=== PATIENT | male | born 1960 | race Caucasian/White ===

== ENCOUNTER 2020-04-10 08:46 | Emergency (ER) | payer BC, SELFPAY ==
--- NOTE | ~2020-04-10 | CT_ITS ---
EXAMINATION: CTA chest PE protocol DATE: 04/10/2020 10:36 INDICATION: Cough. Elevated d-dimer. TECHNIQUE: Computed tomography angiography (CTA) of the chest was performed with 100 mL Omnipaque-350 intravenous contrast timed to evaluate the pulmonary arteries. Coronal maximum intensity projection 3D-reconstructions were created by the technologist. Automated exposure control and iterative reconst ruction technique were employed. Exam dose: 839.24 mGy-cm total exam DLP. COMPARISON: April 10, 2020 2 view chest FINDINGS: There is moderate opacification the pulmonary arteries and no evidence of pulmonary embolis m. No hilar or mediastinal mass lesion or lymphadenopathy. No thoracic aortic aneurysm or dissection. Normal heart size. No pericardial or pleural effusion. Prominent splenic size is suggested at the spleen is only partially included in this examination. No pulmonary infiltrate or consolidation or pulmonary mass lesion. Diffuse idiopathic skeletal hyperostosis of the thoracic spine. There is very prominent unusual posterior spurring at T8-9, projecting up to 7 mm into the thoracic s willie canal. IMPRESSION: No evidence of pulmonary embolism Diffuse idiopathic skeletal hyperostosis of the thoracic spine. Particularly prominent posterior spurring compromising the thoracic spinal canal at T8-9 Suggestion of splenomegaly Reviewed, dictated and finalized at [facility]. Reviewed, dictated and finalized at [facility]. T METAL WORK FURNACE INSTALLER IMPRESSION: No evidence of pulmonary embolism Diffuse idiopathic skeletal hyperostosis of the thoracic spine. Particularly prominent posterior spurring compromising the thoracic spinal emmanuel l at T8-9 Suggestion of splenomegaly
--- NOTE | ~2020-04-10 | XR_ITS ---
XR chest 2V DATE: 04/10/2020 09:42 INDICATION: Cough TECHNIQUE: PA and lateral views COMPARISON: None FINDINGS: Normal heart size. No hilar or mediastinal enlargement. No pulmonary infiltrate or consolid ation, pleural effusion or pulmonary vascular congestion or pneumothorax. Degenerative spurring of the thoracic spine. IMPRESSION: No active cardiopulmonary disease Reviewed, dictated and finalized at [facility]. CH ENGINE OPTIMIZATION MANAGER
[2020-04-10 09:08] VITALS: BP 114/64; PULSE 110; RESP 16; TEMP 36.6; O2SAT 99
--- NOTE | 2020-04-10 09:11 | ECG_ITS ---
Measurements Intervals [place] Rate: P: AK: QRS: QRSD: T: QT: QTc: Interpretive Statements SINUS TACHYCARDIA BORDERLINE T WAVE ABNORMALITY- INFERIOR LEADS BASELINE ARTIFACT- I, II, III, AVR, AVL, AVF BORDERLINE ECG Electronically Signed On 04-11-2020 8:50:56 TRIAL MGR by Odell Newton D.O.
[2020-04-10] MEDS: SODIUM CHLORIDE 0.9% IV 1,000 ML 999 ML IV CONT (09:32)
[2020-04-10 09:42] LABS: Hematocrit 23.1 % (40.0-54.0); Hemoglobin 7.1 g/dL (14.0-18.0); Mean Corpuscular HGB Conc 30.7 g/dL (32.0-36.0); Mean Corpuscular Hemoglobin 26.8 pg (27.0-31.0); Mean Corpuscular Volume 87.2 fL (78.0-102.0); Red Blood Count 2.65 M/mm3 (4.70-6.10); White Blood Count 1.8 K/mm3 (4.8-10.8)
[2020-04-10 09:45] VITALS: BP 98/55; PULSE 97; RESP 18; O2SAT 98
[2020-04-10 09:48] LABS: Add Urine Microscopic? YES; Bilirubin Urine 1+ (Negative); Blood Urine Negative (Negative); Glucose Urine UA Negative (Negative); Ketones Urine Negative (Negative); Leukocyte Esterase Ur Negative LEU/UL (Negative); Nitrate Urine Negative (Negative); Protein Urine 1+ (Negative); Specific Grav Ur >= 1.030 (1.010-1.020)
[2020-04-10 09:52] LABS: INR 1.3; Partial Thromboplastin Time 28.4 SEC (23.90-30.70); Prothrombin Time 13.3 Seconds (9.50-12.10)
[2020-04-10 09:54] LABS: Amorphous Sediment Urine Moderate; Bacteria Urine 1+ /hpf; RBC Urine None seen /hpf (0-2); Squamous Epithelial Cell Urine Few /hpf (Few); WBC Urine None seen /hpf (0-3)
[2020-04-10 09:55] LABS: Appearance Urine Sl Cloudy (Clear); Color Urine Amber (Yellow)
[2020-04-10 09:56] LABS: Lactic Acid Reflex 1.2 mmol/L (0.4-2.0)
[2020-04-10 09:57] LABS: D Dimer 0.93 mg/L (0.19-0.50)
[2020-04-10 09:59] LABS: Platelet Count Result 1 K/mm3 (150-420)
[2020-04-10 10:01] LABS: Influenza Control Valid (Valid); SARS-CoV-2 Ag Negative (Negative)
[2020-04-10 10:05] LABS: Alanine Aminotransferase 27 U/L (16-63); Albumin Level 3.1 g/dL (3.4-5.0); Alkaline Phosphatase 52 U/L (46-116); Anion Gap 8 mmol/L (8-16); Aspartate Amino Transferase 27 U/L (15-37); Bilirubin,Total 1.5 mg/dL (0.00-1.00); Blood Urea Nitrogen 22 mg/dL (7-18); Calcium 7.7 mg/dL (8.5-10.1); Carbon Dioxide 27 mmol/L (21-32); Chloride 104 mmol/L (98-108); Estimated CRCL calculation 72 ml/min; Estimated Glomerular Filt Rate > 60; Glucose 129 mg/dL (70-99); Magnesium 2.3 mg/dL (1.8-2.4); Osmolality Calculated 293 mOsm/kg (285-295); Potassium 3.1 mmol/L (3.5-5.1); Sodium 139 mmol/L (136-145); Total Protein 5.9 g/dL (6.4-8.2); Troponin I < 4.0 ng/L (0.00-60.4)
[2020-04-10 10:11] LABS: Band Neutrophils Percent 0 % (0-6); Neutrophils Absolute Manual 0.99 K/mm3 (1.3-6.7); Neutrophils Percent Manual 55 % (46-73); Total Cells Counted 100
[2020-04-10 10:12] LABS: Basophils Percent Manual 0 % (0-1); Eosinophils Percent Manual 0 % (1-6); Lymphocytes Absolute Manual 0.57 K/mm3 (1.1-4.5); Lymphocytes Percent Manual 32 % (18-44); Monocytes Absolute Manual 0.21 K/mm3 (0.1-0.90); Monocytes Percent Manual 12 % (3-9); Platelet Estimate Decreased (Adequate)
--- NOTE | 2020-04-10 11:27 | PC.NURSE ---
[facility] CONTACTED FOR PT TRANSFER. PT REQUESTING [facility].
[2020-04-10 11:37] VITALS: BP 98/51; PULSE 96; RESP 18; O2SAT 99
--- NOTE | 2020-04-10 11:39 | ED.SOB ---
HPI - SOB/Dyspnea General Chief Complaint: Shortness of Breath/Dyspnea Stated Complaint: dizziness, weakness, difficulty breathing Source: patient Mode of arrival: ambulatory History of Present Illness HPI Narrative: 60-year-old gentleman presents to the emergency department with increasing weakness with some mild shortness of breath with some mild nonproductive cough and over the last 3 days has been feeling more weak and had become dizzy when he woke up and sat up this morning. The patient denies any chest pain there is no audible wheezing no fever chills no abdominal pain no flank pain, there is no dysuria new hematuria. The patient does have a history of hypertension is currently on losartan, Coreg and felodipine. There is no current hematuria, no nose bleeds but there is no of note petechiae located on his lower extremity and lower abdominal area. There is no diarrhea constipation and no hematochezia. Patient states that he saw his primary care physician approximately 2 to 3 months ago and was told he had a normal routine exam, had blood work done at [facility] but do not have access to his blood work that was performed at that time. The patient denies any alcohol and is a nonsmoker, currently no abdominal pain no epigastric pain no reproducible chest pain. MD elicited complaint: shortness of breath Onset (ago): day(s) Timing: constant Severity: moderate Exacerbating factors: nothing Related Data Home Medications Medication Instructions Recorded Confirmed brimonidine [Mirvaso] 1 applic TOPICAL DAILY 04/10/20 04/10/20 carvedilol 3.125 mg PO BID 04/10/20 04/10/20 desonide 1 applic TOPICAL PRN 04/10/20 04/10/20 doxycycline hyclate 100 mg PO DAILY 04/10/20 04/10/20 felodipine 5 mg PO DAILY 04/10/20 04/10/20 losartan-hydrochlorothiazide 1 tablet PO DAILY 04/10/20 04/10/20 Allergies Allergy/AdvReac Type Severity Reaction Status Date / Time No Known Allergies Allergy Verified 04/10/20 09:31 Review of Systems Review of Systems: All systems reviewed & are unremarkable except as noted in HPI and below PMFSH Past Medical History Medical History (Updated 04/10/20 @ 11:42 by Forest Heath MD) HTN (hypertension) Exam Const: General: no acute distress and alert Orientation/consciousness: patient oriented x3 HENMT: Head: normal to inspection Eyes: Conjunctivae: conjunctivae normal Pupils: Equal, round and reactive pupils present Direct Ophthalmoscopy: no photophobia Neck: Neck: normal visual inspection, no lymphadenopathy and no meningeal signs Chest: Chest palpation & inspection: normal inspection of the chest Resp: Effort & Inspection: normal respiratory effort Auscultation: clear to auscultation bilaterally Cardio: Rate: regular rate and tachycardic Rhythm: regular rhythm GI: GI Palp: Yes Soft to palpation Percussion: Yes normal to percussion : Testes: Testes normal Urinary Catheter: Urinary Catheter: patent and draining Skin: Other: petechiae noted on his lower extremities and lower abdomen. Neuro: General: patient oriented x3, moves all extremities, no meningeal signs and no focal motor deficits Cranial nerves: Yes Nystagmus not present Extrem: General: normal to inspection and no pedal edema Psych: Mental Status: mental status grossly normal Affect: normal affect Thought content: Yes Normal thought content present Course Course Emergency Course: Reassessment patient, patient appears comfortable no acute distress reviewed findings of his blood work and an scans and was told that he was profoundly thrombocytopenic as well as having pancytopenic with a low white count and low hemoglobin and hematocrit. Patient denies any overt bleeding, denies having any current or recent nose bleeds. Patient stated that he wished to be transfer to [facility]. Reviewed the CTA scan and there was no evidence of pulmonary embolism, although not complete showed that there is evidence of splenomeg
--- NOTE | 2020-04-10 12:28 | PC.NURSE ---
with no accepting oncologist at [place], pt unable to be accepted at [facility]. [facility] for [facility].
--- NOTE | 2020-04-10 12:35 | PC.NURSE ---
DR. CONSTANTINO FROM [facility] CALLED AND SPOKE WITH DR WALTON ABOUT PT. PT ACCEPTED TO [facility].
--- NOTE | 2020-04-10 13:05 | PC.NURSE ---
[facility] CONTACTED FOR TRANSFER.
[2020-04-10 13:20] VITALS: BP 101/78; PULSE 95; RESP 18; O2SAT 98
== END 2020-04-10 13:37 | disposition short-term general hospital (02) ==
PROVIDERS: Emergency Provider Emergency Medicine; PCP Internal Medicine
DX: D61.818 Other pancytopenia (principal); Z20.822 Contact with and (suspected) exposure to COVID-19; R06.02 Shortness of breath
CPT/HCPCS: 36415; 71046; 71275; 80053; 81001; 83605; 83735; 83880; 84484; 85025; 85055; 85380; 85610; 85730; 86900; 86901; 87040; 87426; 87804; 93005; 96360; 99285; C9803; J7030; J7050; Q9967

== ENCOUNTER 2020-04-10 15:40 | Inpatient (IN) | payer BC, SELFPAY ==
[2020-04-10] VITALS (16 sets, daily range): BP systolic 77–117; BP diastolic 33–64; PULSE 79–102; RESP 13–22; TEMP 36–37; O2SAT 97–100
--- NOTE | ~2020-04-10 | BM_ITS ---
EXAMINATION: CCL bone marrow asp w bx diag DATE: 04/11/2020 13:18 INDICATION: Pancytopenia. TECHNIQUE: A time-out was performed to verify the patient's name, date of , and procedure to b e performed. The procedure including the risks, benefits, and alternatives was discussed with the pat ient. Risks discussed included bleeding and infection. The patient understood the risks and agreed to proceed. The skin overlying the right ilium was prepped and draped in usual sterile fashion. Anest hetic was administered with 1% lidocaine subcutaneously. 50 mcg fentanyl IV was given for pain contro l. An 11 gauge needle was inserted into the ilium with fluoroscopic guidance. Bone marrow was aspira hebert. An 8 gauge needle was then inserted into the ilium with fluoroscopic guidance. A core bone marro w biopsy was obtained. There were no immediate complications. Fluoroscopy exposure time was 0.0 minut es. The total number of images was 9. FINDINGS: Real-time fluoroscopy demonstrates a marker overlying the right posterior superior iliac sp ine. IMPRESSION: 1. Fluoro-guided bone marrow aspiration. 2. Fluoro-guided bone marrow core biopsy. Reviewed, dictated and finalized at [facility]. OIDERER
--- NOTE | 2020-04-10 14:05 | ADMGEN ---
This patient, Willy Gamboa, was admitted to Medical Room 251-. Patient/family oriented to hospital policies and general routines including ID bracelet, bed and alarms, visiting hours, pain management, procedures, bathroom and other care routines, personal items, smoking policy, room service/diet, and visiting hours. Information on how to activate the Rapid Response Team has been discussed. Patient/Family are encouraged to report perceived risks to care and to ask questions if they do not understand what they are told or what they should do.
--- NOTE | 2020-04-10 15:46 | PM.IMHP ---
H&P: HPI History of Present Illness Date/Time: 04/10/20 15:46 Chief Complaint: Weakness and dizziness Narrative: Willy Gamboa is a 60 year old male the patient was a direct admit [facility] from [facility]. Heath. I did speak to Dr. Heath at [facility] regarding the patient and I also spoke with Dr. schaefer. Dr. schaefer did also spoke with Dr. Heath at [facility]. Dr. schaefer agreed to consult on the patient. The patient has been feeling weak and fatigued for approximately 3 days. He has been having some darker urine. He just noticed some petechiae today on his chest and lower extremity. Otherwise the patient has not noticed any bleeding. No blood in his stool and he has not been coughing up any blood. He states that he has been coughing but it has been a thicker phlegm. He said that he did have some chills and some night sweats but no fever that he is aware of. He denies any chest pain or shortness of breath. The patient has been weak and dizzy. The patient stated that he had normal labs last month. He has had no history of any HIV or any cancer. He said that he had a normal physical about 2 or 3 months ago. He is a nonsmoker. He has no abdominal pain or nausea vomiting. Patient has a past medical history of hypertension. He has not taken any new medication or any blood thinners. He has not been taking any NSAIDs. The patient appears to be very comfortable. The patient did have a CT a performed with no evidence of any pulmonary embolism. The patient also had evidence of splenomegaly. He did have an elevated D-dimer. He is not having any discomfort at this time. White count was noted to be 1.8. The patient had been sitting in the chair initially when the lab karen some blood on the patient the patient passed out became unresponsive. The patient had approximately an 2nd pause on his heart monitor. The patient was diaphoretic. His blood sugar was in the 120s. A stat EKG was ordered as well as troponins. I did call the district or district office director who suggested that we place the patient in ICU under IMU status. The patient had a blood pressure of approximately 90/50 at this time. The patient is being admitted to inpatient services on 04/10/2020. Review of Systems Review of Systems: All systems reviewed & are unremarkable except as noted in HPI and below Constitutional: Constitutional: Reports as per HPI and Reports no additional constitutional complaints Eyes: Eyes: Reports as per HPI and Reports no additional eye complaints ENT: Reports system reviewed and no additional complaints, except as documented and Reports Normal hearing present Cardiovascular: Cardiovascular: Reports no additional cardiovascular complaints Respiratory: Respiratory: Reports no additional respiratory complaints and Reports no additional respiratory complaints Gastrointestinal: Gastrointestinal: Reports as per HPI and Reports no additional gastrointestinal complaints Musculoskeletal: Musculoskeletal: Reports no additional musculoskeletal complaints Integumentary/Breasts: Skin/Breast: Reports system reviewed and no additional complaints, except as docu and Reports as per HPI Neurologic: Reports system reviewed and no additional complaints, except as documented, Reports as per HPI and Reports Normal hearing present Psychiatric: Psychiatric: Reports no additional psychiatric complaints and Reports as per HPI Endocrine: Endocrine: Reports no additional endocrine complaints Hematologic/Lymphatic: Hematologic/Lymphatic: Reports no additional hematologic/lymphatic complaints Allergic/Immunologic: Allergic/Immunologic: Reports no additional allergic/immunologic complaints [facility] Past Medical History Medical History (Updated 04/10/20 @ 16:39 by Akla Mendoza NP) HTN (hypertension) Rosacea Surgical History Surgical History (Updated 04/10/20 @ 16:40 by Alka Mendoza NP) No pertinent past surgical history Family History Family Histo
[2020-04-10 16:22] LABS: Basophils Percent Auto 0.5 % (0.2-1.2); Hematocrit 25.5 % (42.0-52.0); Hemoglobin 8.1 g/dL (14.0-18.0); Immature Granulocyte Absolute 0.09 K/mm3 (0.00-0.031); Immature Granulocyte Percent A 4.2 % (0-0.5); Lymphocytes Absolute Auto 0.52 K/mm3 (0.9-3.2); Lymphocytes Percent Auto 24.5 % (18.3-44.2); Mean Corpuscular HGB Conc 31.8 g/dl (32-36); Mean Corpuscular Hemoglobin 27.5 pg (26-34); Mean Corpuscular Volume 86.4 fl (80-100); Monocytes Absolute Auto 0.4 K/mm3 (0.1-0.6); Monocytes Percent Auto 19.3 % (2.6-8.5); Neutrophils Absolute Auto 1.1 K/mm3 (1.3-6.7); Neutrophils Percent Auto 51.5 % (45.5-73.1); Red Blood Count 2.95 M/mm3 (4.6-6.20); Red Cell Distribution Width 18.3 % (11.5-14.5); Reticulocyte Hemoglobin Conten 27.9 pg (28.2-35.7); Reticulocyte Percent 3.34 % (0.7-4.3); White Blood Count 2.1 K/mm3 (4.5-10.0)
[2020-04-10 16:25] LABS: Glucose Point of Care 122 (65-105)
[2020-04-10 16:35] LABS: Bilirubin,Total 1.7 mg/dL (0.2-1.3); Lactate Dehydrogenase 734 U/L (313-618); Magnesium 2.2 mg/dL (1.6-2.3)
[2020-04-10 16:36] LABS: Lactic Acid Reflex 0.9 mmol/L (0.7-2.1)
[2020-04-10 16:49] LABS: Transferrin 183 mg/dL (206-381)
[2020-04-10 16:51] LABS: Troponin I < 0.012 ng/mL (0.000-0.034)
[2020-04-10 16:52] LABS: Platelet Count Result < 3 k/mm3 (150-375)
[2020-04-10 16:55] LABS: Platelet Estimate Decreased (Adequate); Polychromasia 1+ (NORMAL)
[2020-04-10 16:56] LABS: Anisocytosis 1+ (NORMAL); Ovalocytes 1+ (NORMAL); Tear Drop Cells 1+ (NORMAL)
[2020-04-10 16:57] LABS: Poikilocytosis 1+ (NORMAL)
[2020-04-10 17:04] LABS: Iron 103 ug/dL (49-181)
--- NOTE | 2020-04-10 17:05 | PC.NURSE ---
To ICU/05 via bed. Family notified of transfer. Report called to Farshad PAZ.
--- NOTE | 2020-04-10 17:13 | PC.NURSE ---
1700 Spoke with , Carey, updated on patient condition. Pt alert and oriented at this time. While patient was being admitted by nurse, pt became dizzy, lost consciousness, had a 8 second pause on telemetry & regained consciousness. Pt diaphoretic, pale, clammy. Pt transferred to the bed via wheelchair. Provider was at the bedside and determined he will need to go to ICU for closer monitoring and they will place pads on his chest in the event that he would require cardioversion. Visiting hours and policy was explained & contact information shared.
--- NOTE | 2020-04-10 17:13 | PC.NURSE ---
To ICU/05 via bed. Family notified of transfer.Report called to Farshad PAZ.
[2020-04-10 17:14] LABS: Percent Iron Saturation 38 % (20-50)
[2020-04-10 17:16] LABS: HIV 1/2 Ab P24 Ag Result Negative (Negative)
[2020-04-10 17:45] LABS: Folic Acid 10.3 ng/mL (2.76->20)
[2020-04-10] MEDS: SODIUM CHLORIDE 0.9% IV 250 ML 30 ML IV CONT (17:45)
[2020-04-10 19:35] LABS: INR 1.2; Prothrombin Time 15.6 Seconds (11.1-14.7)
[2020-04-10 19:48] LABS: Troponin I < 0.012 ng/mL (0.000-0.034)
[2020-04-10 23:12] LABS: Troponin I < 0.012 ng/mL (0.000-0.034)
[2020-04-11] VITALS (30 sets, daily range): BP systolic 100–141; BP diastolic 52–76; PULSE 69–101; RESP 12–24; TEMP 36.6–37.8; O2SAT 95–100
[2020-04-11 04:26] LABS: Hematocrit 23.1 % (42.0-52.0); Hemoglobin 7.6 g/dL (14.0-18.0); Immature Granulocyte Absolute 0.03 K/mm3 (0.00-0.031); Immature Granulocyte Percent A 1.9 % (0-0.5); Immature Platelet Fraction Pct 1.7 % (0.9-11.2); Lymphocytes Absolute Auto 0.44 K/mm3 (0.9-3.2); Lymphocytes Percent Auto 27.2 % (18.3-44.2); Mean Corpuscular HGB Conc 32.9 g/dl (32-36); Mean Corpuscular Hemoglobin 28.5 pg (26-34); Mean Corpuscular Volume 86.5 fl (80-100); Mean Platelet Volume 7.5 fl (7.4-10.4); Monocytes Absolute Auto 0.4 K/mm3 (0.1-0.6); Monocytes Percent Auto 24.1 % (2.6-8.5); Neutrophils Absolute Auto 0.8 K/mm3 (1.3-6.7); Neutrophils Percent Auto 46.8 % (45.5-73.1); Red Blood Count 2.67 M/mm3 (4.6-6.20); Red Cell Distribution Width 17.1 % (11.5-14.5)
[2020-04-11 04:38] LABS: Alanine Aminotransferase 22 U/L (4-50); Albumin Level 2.9 g/dL (3.5-5.1); Alkaline Phosphatase 44 U/L (38-126); Anion Gap 5 mmol/L (8-16); Aspartate Amino Transferase 20 U/L (17-59); Bilirubin,Total 1.5 mg/dL (0.2-1.3); Blood Urea Nitrogen 20 mg/dL (9-20); Calcium 7.7 mg/dL (8.4-10.2); Carbon Dioxide 29 mmol/L (22-30); Chloride 106 mmol/L (98-107); Estimated Glomerular Filt Rate > 60; Glucose 107 mg/dL (75-110); Potassium 3.1 mmol/L (3.4-5.0); Sodium 140 mmol/L (137-145)
[2020-04-11 04:51] LABS: Platelet Count Result < 3 k/mm3 (150-375); White Blood Count 1.6 K/mm3 (4.5-10.0)
[2020-04-11 04:52] LABS: Hypochromasia 2+ (NORMAL); Platelet Estimate Decreased (Adequate); Polychromasia 1+ (NORMAL)
--- NOTE | 2020-04-11 09:00 | PM.CNCAR ---
Assessment and Plan Additional Plan 60-year-old man with Fairly typical episode of vasovagal syncope during phlebotomy. This occurred yesterday. This was well documented on telemetry. It is fortuitous that he was on telemetry even though I am not sure the reason for that since he was transferred here for hematologic problem. In any event he has no other cardiac history or symptoms his cardiovascular physical exam and is resting 12 lead ECG are unremarkable. I am very confident this was a benign vaso vagal event related related to phlebotomy. I believe there are likely to be plans to perform a bone marrow examination later today. If that takes place I would recommend Prieb treating him with a mg of atropine prior to attempting bone marrow aspiration Forest Malik MD [facility] History of Present Illness History of Present Illness Consult date/time: 04/11/20 09:00 Reason For Visit: Pancytopenia Narrative: This is a very pleasant and somewhat unfortunate 60-year-old gentleman that I am seeing at the request of the hospitalist because of a bradycardic pause that he had yesterday afternoon here at the hospital on the floor. The patient was feeling unwell and thought he had a viral illness and so he went to the emergency room in [place] yesterday morning. His evaluation demonstrated him to be significantly pancytopenic and so he was transferred to [facility] for admission and further evaluation. Yesterday while he was on the floor he had phlebotomy being performed with he says quite a few tubes of blood being taken. As the supervisor steel division was proceeding he told her that he was starting to feel unwell. They let him rest for a while but with has phlebotomy continued he had a long asystolic pause which was documented on a telemetry. The telemetry strips have been personally reviewed he had a sinus pause and recovered spontaneously. He states he has never had a syncopal episode in the past and denies any other potentially cardiac symptoms such as exertional dyspnea chest pain orthopnea PND or palpitations. His resting 12 lead ECG is unremarkable. He has received several units of platelets because of very low platelet count but the count has not increased in response. Hematology consult of course has been requested but has yet to occur. He offers no other symptoms or complaints. His lab work shows he is pancytopenic with a platelet count of less than 3000 a hemoglobin in the sevens and a white count of 1.6. Review of Systems Constitutional: Constitutional: Reports lethargy Eyes: Eyes: Reports no additional eye complaints ENT: Reports system reviewed and no additional complaints, except as documented Cardiovascular: Cardiovascular: Reports no additional cardiovascular complaints Respiratory: Respiratory: Reports no additional respiratory complaints Gastrointestinal: Gastrointestinal: Reports no additional gastrointestinal complaints Musculoskeletal: Musculoskeletal: Reports no additional musculoskeletal complaints Integumentary/Breasts: Comments: Recent development of petechia Neurologic: Reports system reviewed and no additional complaints, except as documented Psychiatric: Psychiatric: Reports no additional psychiatric complaints Endocrine: Endocrine: Reports no additional endocrine complaints Hematologic/Lymphatic: Hematologic/Lymphatic: Reports no additional hematologic/lymphatic complaints PMFSH Past Medical History Medical History (Updated 04/11/20 @ 00:00 by Angel Mackenzie) HTN (hypertension) Rosacea Surgical History Surgical History (Updated 04/10/20 @ 16:40 by Alka Mendoza NP) No pertinent past surgical history Family History Family History Mother Lung cancer Father Lung cancer Social History Social History (Updated 04/10/20 @ 16:41 by Alka Mendoza NP) Social History: The patient is and lives with his . He states that s
[2020-04-11] MEDS: DOXYCYCLINE HYCLATE 100 MG TABLET PO (09:15)
[2020-04-11] MEDS: SODIUM CHLORIDE 0.9% IV 250 ML 30 ML IV CONT ×2 (09:15→18:34)
--- NOTE | 2020-04-11 13:20 | PM.IMPN ---
Progress Note: A&P Assessment and Plan (1) Pancytopenia: Code(s): D61.818 - Other pancytopenia Status: Acute Assessment and Plan: Unclear etiology S/p platelet transfusion with little response BM bx today Hem/Onc has been consulted Will continue to monitor (2) HTN (hypertension): Code(s): I10 - Essential (primary) hypertension Status: Acute Assessment and Plan: Continue home meds Continue to monitor (3) Vasovagal episode: Code(s): R55 - Syncope and collapse Status: Acute Assessment and Plan: No need for further intervention at this time as vasovagal in nature single episode Appreciate Cardiology note Subjective Date/time seen: 04/11/20 13:20 I feel fine Review of Systems Review of Systems: Narrative: Flu like symptoms. Constitutional: Comments: fevers, chills, rigors for 2 weeks or so. ENT: Comments: no ears ache ,no nasal congestion, no throat pain. Cardiovascular: Comments: no chest pain, no orthopnea, no pnd, no leg swelling, episode of syncope. Respiratory: Comments: no sob, dry cough, no sputum production, Gastrointestinal: Comments: no n/v/diarrhea. Musculoskeletal: Comments: no muscle aches or pains. Integumentary/Breasts: Comments: petechial rash in B/L LE extremities Neurologic: Comments: vasovagal episode while getting blood drawn Exam Narrative: Exam Narrative: Sitting in bed. Const: General: healthy appearing, comfortable, no acute distress, alert, awake and Physically active Nutritional Appearance: overweight Orientation/consciousness: patient oriented x3 HENMT: Head: normocephalic Ears: hearing grossly normal bilaterally General nose exam: Normal external nose present Face and sinus: normal facial exam Eyes: General: appearance normal, both eyes and all related structures Pupils: Equal, round and reactive pupils present EOM: EOMs intact bilaterally Neck: Neck: no lymphadenopathy, supple and no JVD Resp: Effort & Inspection: normal respiratory effort and able to speak in complete sentences Auscultation: clear to auscultation bilaterally Cardio: Jugular venous distension: no JVD Rate: regular rate Rhythm: regular rhythm GI: GI Palp: Yes Soft to palpation and Yes No hepatosplenomegaly present Skin: Rashes: rashes noted (petechial rash in b/l le ) Neuro: General: patient oriented x3 and CN's II-XI intact bilaterally Cranial nerves: Yes CN's II-XII intact bilaterally and Yes Equal, round and reactive pupils present Cognition (Neuro): normal cognition Motor exam (neuro): 5/5 motor strength present throughout Extrem: General: normal to inspection and no pedal edema Objective Data Vital Signs Vital Signs: Vital Signs - 24 hr 04/10/20 16:00 04/10/20 16:10 04/10/20 16:25 Temperature 98.2 F 97.2 F L Pulse Rate 102 H 98 91 Respiratory Rate 16 16 Blood Pressure 77/33 L 94/57 L Pulse Oximetry 100 100 04/10/20 17:30 04/10/20 17:40 04/10/20 17:48 Temperature 98.5 F 98.4 F Pulse Rate 88 88 94 Respiratory Rate 16 16 18 Blood Pressure 102/58 L 111/56 L Pulse Oximetry 98 98 100 04/10/20 18:00 04/10/20 18:49 04/10/20 18:52 Temperature 96.8 F L 96.8 F L Pulse Rate 94 89 89 Respiratory Rate 20 20 Blood Pressure 105/64 105/64 Pulse Oximetry 99 99 04/10/20 19:07 04/10/20 20:00 04/10/20 20:32 Temperature 98.1 F 98.5 F 98.6 F Pulse Rate 88 88 85 Respiratory Rate 13 16 22 H Blood Pressure 117/61 97/56 L 105/57 L Pulse Oximetry 99 97 98 04/10/20 20:50 04/10/20 22:31 04/10/20 22:50 Temperature 98.5 F 98.5 F 98.2 F Pulse Rate 86 80 83 Respiratory Rate 18 18 16 Blood Pressure 91/46 L 107/57 L 112/55 L Pulse Oximetry 97 98 97 04/10/20 23:02 04/11/20 00:43 04/11/20 00:58 Temperature 98.1 F 98.8 F 98.7 F Pulse Rate 79 78 70 Respiratory Rate 22 H 12 21 H Blood Pressure 99/58 L 108/70 107/60 Pulse Oximetry 98 97 96 04/11/20 01:58 04/11/20 02:45 04/11/20 04:00 Temperature 98.7 F 99 F
--- NOTE | 2020-04-11 13:33 | SUR.PHASEII ---
1330 - Pt positioned flat on back on stretcher after bone biopsy to right posterior hip. Drsg dry and intact. Pt resting at intervals with c/o pressure/ pain to right hip area. VSS. Specimens sent to lab. Transferred back to ICU via stretcher. Report called to OBJECTIVE C DEVELOPERBRANDI Yen.
--- NOTE | 2020-04-11 14:02 | PC.NURSE ---
Pt off the unit,to record label intern for bonebiopsy at 1150, returned to unit at 1330, dressing to right butt cheek clean dry and intact
[2020-04-11 16:08] LABS: Hematocrit 23.5 % (42.0-52.0); Hemoglobin 7.7 g/dL (14.0-18.0); Immature Platelet Fraction Pct 1.9 % (0.9-11.2); Mean Corpuscular HGB Conc 32.8 g/dl (32-36); Mean Corpuscular Hemoglobin 28.3 pg (26-34); Mean Corpuscular Volume 86.4 fl (80-100); Mean Platelet Volume 8.1 fl (7.4-10.4); Red Blood Count 2.72 M/mm3 (4.6-6.20); Red Cell Distribution Width 17.1 % (11.5-14.5)
[2020-04-11 16:17] LABS: Platelet Count Result < 3 k/mm3 (150-375); White Blood Count 1.5 K/mm3 (4.5-10.0)
--- NOTE | 2020-04-11 18:02 | PDONCCN ---
HPI - Date of Consult Date/Time: 04/11/20 18:02 Requesting Physician: Erin Du MD Primary Care Provider: Jani Burns MD - Consult Narrative Reason for consult: Pancytopenia Narrative: Willy Gamboa is a 60 year old male who has been in good health came into the ER at [facility] yesterday with complain of upper respiratory infection like symptoms for last couple of weeks duration with cough without any hemoptysis. She he has been feeling tired lethargic. He denies any fevers. Some night sweats. He denies any recent travel. Denies any start of new medication. CT scan showed no evidence of pulmonary embolism. There was suggestion of splenomegaly but no lymphadenopathy. CBC showed platelet count of less than 3000 with hemoglobin of 8.1 and WBC of 2.1. He denies any melena hematochezia and bleeding. His main complaint is tiredness and fatigue with lightheadedness and dizziness. HIV testing was performed and came back negative Review of Systems - Review of Systems All systems reviewed & are unremarkable except as noted in HPI and bel - Neurologic Reports system reviewed and no additional complaints, except as documented, Reports hearing normal [facility] Medical History: Medical History (Last Updated 04/10/20 @ 16:39 by Alka Mendoza NP) HTN (hypertension) Rosacea Surgical History: Surgical History (Last Updated 04/10/20 @ 16:40 by Alka Mendoza NP) No pertinent past surgical history Family History: Family History (Last Reviewed 04/10/20 @ 16:40 by Alka Mendoza NP) Mother Lung cancer Father Lung cancer - Social History Social History: Social History (Last Updated 04/10/20 @ 16:41 by Alka Mendoza NP) Alcohol Use: Alcohol intake: former Substance Use: Substance use: never Substance use type: does not use Others: Spiritual care concerns: No Smoking Status: Smoking status: Never smoker Meds Home Medications Medication Instructions Recorded Confirmed Type brimonidine [Mirvaso] 1 applic TOPICAL DAILY 04/10/20 04/10/20 History carvedilol 3.125 mg PO BID 04/10/20 04/10/20 History desonide 1 applic TOPICAL PRN 04/10/20 04/10/20 History doxycycline hyclate 100 mg PO DAILY 04/10/20 04/10/20 History felodipine 5 mg PO DAILY 04/10/20 04/10/20 History losartan-hydrochlorothiazide 1 tablet PO DAILY 04/10/20 04/10/20 History Allergies Allergy/AdvReac Type Severity Reaction Status Date / Time No Known Allergies Allergy Verified 04/10/20 14:36 Results - Labs CBC & Chem 7: 04/11/20 15:31 04/11/20 04:14 Labs: Short CBC 04/11/20 04/11/20 Range/Units 04:14 15:31 WBC 1.6 L* 1.5 L* (4.5-10.0) K/mm3 Hgb 7.6 L 7.7 L (14.0-18.0) g/dL Hct 23.1 L 23.5 L (42.0-52.0) % Plt Count < 3 L* < 3 L* (150-375) k/mm3 BMP 04/11/20 04:14 Sodium 140 Potassium 3.1 L Chloride 106 Carbon Dioxide 29 BUN 20 Creatinine 1.00 Glucose 107 Calcium 7.7 L Cardiac Enzymes 04/10/20 04/10/20 Range/Units 19:15 22:41 Troponin I < 0.012 < 0.012 (0.000-0.034) ng/mL Liver Function 04/11/20 Range/Units 04:14 Total Bilirubin 1.5 H (0.2-1.3) mg/dL AST 20 (17-59) U/L ALT 22 (4-50) U/L Alkaline Phosphatase 44 (38-126) U/L Albumin 2.9 L (3.5-5.1) g/dL Assessment and Plan - Additional Plan Pancytopenia. Patient is a pleasant 60-year-old male who has been in good health presented with couple of weeks duration of symptoms consistent with upper respiratory infection. He has been complaining of tiredness and fatigue and weakness. He also is complaining of cough without any productive sputum. Mild fever. Occasional night sweats. Labs showed pancytopenia with significant thrombocytopenia. He remains asymptomatic with any bleeding and bruising. He denies any previous history of hematological disorder. Denies any recent travel history. I am concerned
[2020-04-11] MEDS: ACETAMINOPHEN 325 MG TABLET 650 MG PO (19:57)
--- NOTE | 2020-04-11 21:14 | PC.NURSE ---
temp up to 100, Garry in blood bank and Alka Mendoza notified. Garry instructed this nurse that that was not high enough for a transfusion reaction but to check with doctor and continue to monitor. Alka Mendoza, [place] instructed this nurse to give tylenol and continue to monitor for s/s of rection. Temp now 98.0 pt resting comofortably with no complaints. Re-educated on s/s for blood transfusion.
[2020-04-11] MEDS: methylPREDNISolone SOD SUCC 125 MG VIAL 80 MG IV PUSH (22:40)
[2020-04-12] VITALS (17 sets, daily range): BP systolic 98–122; BP diastolic 56–72; PULSE 50–94; RESP 15–22; TEMP 36.4–37.1; O2SAT 93–99
[2020-04-12] MEDS: methylPREDNISolone SOD SUCC 125 MG VIAL 80 MG IV PUSH ×3 (05:38→21:38)
[2020-04-12 07:50] LABS: Basophils Percent Auto 0.6 % (0.2-1.2); Hematocrit 25.2 % (42.0-52.0); Hemoglobin 8.2 g/dL (14.0-18.0); Immature Granulocyte Absolute 0.08 K/mm3 (0.00-0.031); Immature Granulocyte Percent A 4.9 % (0-0.5); Immature Platelet Fraction Pct 1.8 % (0.9-11.2); Lymphocytes Percent Auto 24.7 % (18.3-44.2); Mean Corpuscular HGB Conc 32.5 g/dl (32-36); Mean Corpuscular Hemoglobin 28.2 pg (26-34); Mean Corpuscular Volume 86.6 fl (80-100); Mean Platelet Volume 8.7 fl (7.4-10.4); Monocytes Absolute Auto 0.2 K/mm3 (0.1-0.6); Monocytes Percent Auto 10.5 % (2.6-8.5); Neutrophils Percent Auto 59.3 % (45.5-73.1); Nucleated Red Blood Cells Perc 1.2 % (0.0-0.2); Red Blood Count 2.91 M/mm3 (4.6-6.20); Red Cell Distribution Width 17.2 % (11.5-14.5)
[2020-04-12 08:01] LABS: Anion Gap 5 mmol/L (8-16); Blood Urea Nitrogen 20 mg/dL (9-20); Calcium 8.3 mg/dL (8.4-10.2); Carbon Dioxide 31 mmol/L (22-30); Chloride 107 mmol/L (98-107); Estimated CRCL calculation 107 ml/min; Estimated Glomerular Filt Rate > 60; Glucose 142 mg/dL (75-110); Potassium 3.7 mmol/L (3.4-5.0); Sodium 143 mmol/L (137-145)
[2020-04-12 08:18] LABS: Platelet Count Result < 3 k/mm3 (150-375); White Blood Count 1.6 K/mm3 (4.5-10.0)
[2020-04-12] MEDS: DOXYCYCLINE HYCLATE 100 MG TABLET PO (08:23)
[2020-04-12] MEDS: PANTOPRAZOLE 40 MG TABLET PO (08:23)
--- NOTE | 2020-04-12 10:52 | PM.PNCARD ---
Progress Note: A&P Assessment and Plan (1) Vasovagal episode: Code(s): R55 - Syncope and collapse Status: Acute Assessment and Plan: No prior history of vasovagal syncope. No recurrence. No rib further workup needed. Can be transferred out of ICU from my point of view. Will sign off. Thank you for asking specifically in the care of this nice gentleman. (2) HTN (hypertension): Code(s): I10 - Essential (primary) hypertension Status: Acute Assessment and Plan: Blood pressure controlled, currently off his usual blood pressure medications. (3) Pancytopenia: Code(s): D61.818 - Other pancytopenia Status: Acute Assessment and Plan: Bone marrow biopsy done yesterday. Dr. Herrera is following. Subjective Date/time seen: 04/12/20 10:52 Interval history: Patient admitted with pancytopenia and shortness of breath. We are following him for a 10 second pause during phlebotomy yesterday. No prior history of syncope. Date of service 04/12/2020: Patient is a ICU, doing well, no shortness of breath at rest. Telemetry shows no further pauses. Very transient bradycardia noted at times heart rate apparently down to 49 beats per minute. Review of Systems Constitutional: Constitutional: Reports no additional constitutional complaints ENT: Denies epistaxis Cardiovascular: Cardiovascular: Denies chest pain, Denies leg edema and Denies lightheadedness Respiratory: Respiratory: Denies dyspnea Gastrointestinal: Gastrointestinal: Denies abdominal pain Genitourinary: Genitourinary: Denies dysuria Musculoskeletal: Musculoskeletal: Denies back pain Integumentary/Breasts: Skin/Breast: Reports rash (Easy bruising and slight petechia) Neurologic: Denies confusion Psychiatric: Psychiatric: Reports no additional psychiatric complaints Exam Narrative: Exam Narrative: Pleasant healthy-appearing male with daughter at the bedside no distress Const: General: comfortable and no acute distress HENMT: Mouth: Yes moist mucous membranes Eyes: EOM: EOMs intact bilaterally Neck: Neck: supple Resp: Effort & Inspection: normal respiratory effort Auscultation: clear to auscultation bilaterally Cardio: Rate: regular rate Rhythm: regular rhythm Heart sounds: Murmur heart sound present (1/6 BRYANT) GI: Inspection: non-distended GI Palp: Yes Soft to palpation and No Firmness to palpation present (GI) Skin: General skin exam: rashes and/or lesions noted Other: Mild area of ecchymosis and petechiae right thigh Neuro: Cognition (Neuro): normal cognition Speech: normal speech Motor exam (neuro): Normal motor muscle tone present throughout Extrem: General: no edema and no pedal edema Psych: Mental Status: mental status grossly normal Objective Data Vital Signs Vital Signs: Vital Signs - 24 hr 04/11/20 11:54 04/11/20 12:59 04/11/20 13:04 Temperature 97.8 F Pulse Rate 88 81 83 Respiratory Rate 18 22 H 22 H Blood Pressure 141/76 H 117/58 L 118/55 L Pulse Oximetry 95 99 99 04/11/20 13:15 04/11/20 13:30 04/11/20 13:58 Temperature Pulse Rate 97 76 76 Respiratory Rate 14 15 15 Blood Pressure 112/55 L 104/60 Pulse Oximetry 98 97 97 04/11/20 13:59 04/11/20 14:00 04/11/20 16:00 Temperature 98 F Pulse Rate 74 80 87 Respiratory Rate 16 Blood Pressure 112/64 Pulse Oximetry 98 04/11/20 18:00 04/11/20 19:19 04/11/20 19:43 Temperature 98.8 F 100.0 F H Pulse Rate 85 101 H 101 H Respiratory Rate 20 23 H Blood Pressure 116/70 109/52 L Pulse Oximetry 97 96 04/11/20 19:57 04/11/20 20:00 04/11/20 20:43 Temperature 100.0 F H 98.0 F Pulse Rate 69 96 Respira
--- NOTE | 2020-04-12 13:41 | PM.IMPN ---
Progress Note: A&P Assessment and Plan (1) Pancytopenia: Code(s): D61.818 - Other pancytopenia Status: Acute Assessment and Plan: Awaiting BM bx results Will infuses with Ig G No response to platelet transfusion Follow Hem/Onc recs (2) HTN (hypertension): Code(s): I10 - Essential (primary) hypertension Status: Acute Assessment and Plan: Stable Continue to monitor (3) Vasovagal episode: Code(s): R55 - Syncope and collapse Status: Acute Assessment and Plan: Stable Appreciate Cardiology note Subjective Date/time seen: 04/12/20 13:41 Patient states that he feels just fine. Review of Systems Review of Systems: Narrative: no fevers, no chills, no rigors, no weight loss. Constitutional: Comments: no weight loss. Cardiovascular: Comments: syncope. Respiratory: Comments: no sob, no cough, no sputum production. Gastrointestinal: Comments: no n/v/abdominal pain. Musculoskeletal: Comments: no leg edema. Integumentary/Breasts: Comments: petechial rash in B/L LE. Neurologic: Comments: no sensory motor deficit Exam Narrative: Exam Narrative: Sitting in bed. Const: General: comfortable, no acute distress, alert and awake Nutritional Appearance: overweight Orientation/consciousness: patient oriented x3 HENMT: Head: normal to inspection and normocephalic Ears: hearing grossly normal bilaterally General nose exam: Normal external nose present Face and sinus: normal facial exam Eyes: General: appearance normal, both eyes and all related structures Pupils: Equal, round and reactive pupils present EOM: EOMs intact bilaterally Neck: Neck: no lymphadenopathy, supple and no JVD Lymphatic: no lymphadenopathy noted Resp: Effort & Inspection: able to speak in complete sentences Auscultation: clear to auscultation bilaterally Cardio: Jugular venous distension: no JVD Rate: regular rate Rhythm: regular rhythm GI: GI Palp: Yes Soft to palpation and Yes No hepatosplenomegaly present (non palpapble) Skin: Rashes: rashes noted (petechial rash in B/L LE.) Neuro: General: patient oriented x3 and CN's II-XI intact bilaterally Cranial nerves: Yes CN's II-XII intact bilaterally and Yes Equal, round and reactive pupils present Cognition (Neuro): normal cognition Speech: normal speech Gait exam (Neuro): Normal gait present Motor exam (neuro): 5/5 motor strength present throughout Extrem: General: no pedal edema Objective Data Vital Signs Vital Signs: Vital Signs - 24 hr 04/11/20 13:58 04/11/20 13:59 04/11/20 14:00 Temperature Pulse Rate 76 74 80 Respiratory Rate 15 Blood Pressure Pulse Oximetry 97 04/11/20 16:00 04/11/20 18:00 04/11/20 19:19 Temperature 98 F 98.8 F Pulse Rate 87 85 101 H Respiratory Rate 16 20 Blood Pressure 112/64 116/70 Pulse Oximetry 98 97 04/11/20 19:43 04/11/20 19:57 04/11/20 20:00 Temperature 100.0 F H 100.0 F H Pulse Rate 101 H 69 Respiratory Rate 23 H 14 Blood Pressure 109/52 L 100/54 L Pulse Oximetry 96 96 04/11/20 20:43 04/11/20 20:45 04/11/20 21:43 Temperature 98.0 F 98.0 F 98.8 F Pulse Rate 96 93 Respiratory Rate 22 H 24 H Blood Pressure 120/63 103/59 L Pulse Oximetry 95 97 04/11/20 22:05 04/12/20 00:00 04/12/20 00:19 Temperature 99.1 F 97.9 F 98.8 F Pulse Rate 88 80 70 Respiratory Rate 15 21 H 18 Blood Pressure 114/62 106/71 106/71 Pulse Oximetry 96 95 96 04/12/20 00:36 04/12/20 01:30 04/12/20 02:00 Temperature 97.8 F 97.5 F L Pulse Rate 68 60 82 Respiratory Rate 22 H 19 Blood Pressure 101/66 103/64 Pulse Oximetry 99 94 04/12/20 02:19 04/12/20 04:00 04/12/20 06:00 Temperature 97.5 F L 97.8 F Pulse Rate 94 56 L 50 L Respiratory Rate 20 18 Blood Pressure 106/64 98/56 L Pulse Oximetry 97 94 04/12/20 08:00 04/12/20 10:00 04/12/20 11:15 Temperature 97.7 F 97.5 F L Pulse Rate 67 79 84 Respiratory Rate 19 22 H Blood Pressure 114/67 108/56 L
--- NOTE | 2020-04-12 17:08 | P.PNONC_ITS ---
Progress Note: A/P - Additional Plan Pancytopenia. Bone marrow aspiration and biopsy was done results are pending. Platelet antibody result remains pending. Platelet did not improve after several unit of platelet transfusion. I have started the Solu-Medrol 80 mg q.8 hours for presumed ITP. I will also add IV IgG daily for 3 days for ITP. Patient will receive Protonix for GI prophylaxis. - Time Spent With Patient Total time spent is greater than 50% in coordination of care (as documented) at patient's floor/unit and/or counseling patient: 15 - 25 minutes Subjective Interval history: Pancytopenia Review of Systems - Review of Systems Patient denies any fevers and chills. Denies any abdominal pain. No further nausea vomiting. Complain of mild cough with clear sputum. No bleeding and bruising. - Neurologic Reports system reviewed and no additional complaints, except as documented, Reports hearing normal, Denies confusion Exam Vital signs: Temp Pulse Resp BP Pulse Ox 36.8 C 60 20 122/72 96 04/12/20 16:00 04/12/20 16:00 04/12/20 16:00 04/12/20 16:00 04/12/20 16:00 Narrative: Lungs are clear to auscultation bilaterally Cardiovascular regular rate rhythm no murmurs Abdomen soft nontender nondistended bowel sounds are positive Extremities no edema PN: Objective Data - Labs CBC & Chem 7: 04/12/20 07:43 04/12/20 07:43 Labs: Laboratory Results - last 24 hr 04/10/20 04/12/20 04/12/20 16:00 07:43 07:43 WBC 1.6 L* RBC 2.91 L Hgb 8.2 L Hct 25.2 L MCV 86.6 MCH 28.2 MCHC 32.5 RDW 17.2 H Plt Count < 3 L* MPV 8.7 Immature Gran % (Auto) 4.9 H Neut % (Auto) 59.3 Lymph % (Auto) 24.7 [place] % (Auto) 10.5 H Eos % (Auto) 0.0 Baso % (Auto) 0.6 Lymph # (Auto) 0.40 L [place] # (Auto) 0.2 Eos # (Auto) 0.0 Baso # (Auto) 0.0 Abs Immat Gran (auto) 0.08 H Absolute Neuts (auto) 1.0 L Absolute Nucleated RBC 0.0 Nucleated RBC % 1.2 H % Immature Plt Fraction 1.8 Sodium 143 Potassium 3.7 Chloride 107 Carbon Dioxide 31 H Anion Gap 5 L BUN 20 Creatinine 0.80 Estim Creat Clear Calc 107 Estimated GFR > 60 Glucose 142 H Calcium 8.3 L Blood Type A Positive Antibody Screen Negative ANA, IgG Interpret Negative ANA, Poly Interpret Negative Crossmatch See Detail
[2020-04-13] VITALS (10 sets, daily range): BP systolic 103–122; BP diastolic 57–66; PULSE 47–85; RESP 14–18; TEMP 36.6–36.9; O2SAT 95–99
[2020-04-13] MEDS: methylPREDNISolone SOD SUCC 125 MG VIAL 80 MG IV PUSH ×3 (06:33→22:21)
[2020-04-13] MEDS: PANTOPRAZOLE 40 MG TABLET PO (09:26)
[2020-04-13] MEDS: DOXYCYCLINE HYCLATE 100 MG TABLET PO (09:26)
--- NOTE | 2020-04-13 13:17 | PM.IMPN ---
Progress Note: A&P Assessment and Plan (1) Pancytopenia: Code(s): D61.818 - Other pancytopenia Status: Acute Assessment and Plan: Unchanged Awaiting BM bx Appreciate Hem/Onc note Supportive care (2) HTN (hypertension): Code(s): I10 - Essential (primary) hypertension Status: Acute Assessment and Plan: Stable Continue home meds Continue to monitor (3) Vasovagal episode: Code(s): R55 - Syncope and collapse Status: Acute Assessment and Plan: Single episode (4) HTN (hypertension): Code(s): I10 - Essential (primary) hypertension Status: Acute Assessment and Plan: Continue to monitor On no meds currently Subjective Date/time seen: 04/13/20 13:17 Patient states that he feels fine. Review of Systems Review of Systems: Narrative: No new issues. Exam Narrative: Exam Narrative: Lying in bed Const: General: cooperative, healthy appearing, comfortable, no acute distress, alert, awake and Physically active Nutritional Appearance: overweight Orientation/consciousness: patient oriented x3 Limitations: no limitations HENMT: Head: normal to inspection and normocephalic Ears: hearing grossly normal bilaterally General nose exam: Normal external nose present Face and sinus: normal facial exam Eyes: General: appearance normal, both eyes and all related structures Pupils: Equal, round and reactive pupils present EOM: EOMs intact bilaterally Neck: Neck: no lymphadenopathy, supple and no JVD Resp: Effort & Inspection: normal respiratory effort and able to speak in complete sentences Auscultation: clear to auscultation bilaterally Cardio: Jugular venous distension: no JVD Rate: regular rate Rhythm: regular rhythm GI: GI Palp: Yes Soft to palpation and Yes No hepatosplenomegaly present Skin: Rashes: rashes noted (Petechial rash in B/L LE) Neuro: General: patient oriented x3 and CN's II-XI intact bilaterally Cranial nerves: Yes CN's II-XII intact bilaterally and Yes Equal, round and reactive pupils present Cognition (Neuro): normal cognition Speech: normal speech Motor exam (neuro): 5/5 motor strength present throughout Extrem: General: no pedal edema Objective Data Vital Signs Vital Signs: Vital Signs - 24 hr 04/12/20 14:00 04/12/20 16:00 04/12/20 18:00 Temperature 98.3 F Pulse Rate 64 60 78 Respiratory Rate 20 Blood Pressure 122/72 Pulse Oximetry 96 04/12/20 20:00 04/12/20 22:00 04/13/20 00:00 Temperature 98.5 F 98.3 F Pulse Rate 69 66 65 Respiratory Rate 22 H 16 Blood Pressure 113/67 103/57 L Pulse Oximetry 93 95 04/13/20 02:00 04/13/20 04:00 04/13/20 06:00 Temperature 98.5 F Pulse Rate 58 L 47 L 48 L Respiratory Rate 14 Blood Pressure 107/63 Pulse Oximetry 99 04/13/20 08:00 04/13/20 10:00 Temperature 97.8 F Pulse Rate 58 L 63 Respiratory Rate 18 Blood Pressure 107/66 Pulse Oximetry 97 Intake/Output Intake/Output: Intake & Output 04/10/20 04/11/20 04/12/20 04/13/20 23:59 23:59 23:59 23:59 Intake Total 1051 2437 3150 560 Output Total 325 1000 1575 1175 Balance 726 1437 1575 -615 Meds/Results Medications: Active Medications Generic Name Dose Route Start Last Admin Trade Name Freq PRN Reason Stop Dose Admin Acetaminophen 650 mg 04/11/20 18:05 04/11/20 19:57 Acetaminophen 325 Mg Tablet PO 650 mg Q6H PRN Administration Mild Pain (1-3) Doxycycline Hyclate 100 mg 04/11/20 09:00 04/13/20 09:26 Doxycycline Hyclate 100 Mg Tablet PO 100 mg DAILY CLARICE Administration Methylprednisolone Sodium Succinate 80 mg 04/11/20 22:00 04/13/20 06:33 Methylprednisolone Sod Succ 125 Mg Vial IV PUSH 80 mg Q8HR CLARICE Administration Ondansetron HCl 4 mg 04/10/20 15:40 Ondansetron Inj 4 Mg/2 Ml Vial IV PUSH Q6H PRN Nausea And Vomiting Pantoprazole Sodium 40 mg 04/12/20 09:00 04/13/20 09:26 Pantoprazole 40 Mg Tablet PO 40 mg
[2020-04-13 13:42] LABS: Anion Gap 5 mmol/L (8-16); Blood Urea Nitrogen 23 mg/dL (9-20); Carbon Dioxide 29 mmol/L (22-30); Chloride 108 mmol/L (98-107); Estimated CRCL calculation 106 ml/min; Estimated Glomerular Filt Rate > 60; Glucose 122 mg/dL (75-110); Potassium 3.7 mmol/L (3.4-5.0); Sodium 142 mmol/L (137-145)
[2020-04-13 13:59] LABS: Hematocrit 25.8 % (42.0-52.0); Hemoglobin 8.3 g/dL (14.0-18.0); Immature Granulocyte Absolute 0.07 K/mm3 (0.00-0.031); Immature Granulocyte Percent A 1.7 % (0-0.5); Immature Platelet Fraction Pct 23.8 % (0.9-11.2); Lymphocytes Absolute Auto 0.68 K/mm3 (0.9-3.2); Lymphocytes Percent Auto 16.2 % (18.3-44.2); Mean Corpuscular HGB Conc 32.2 g/dl (32-36); Mean Corpuscular Hemoglobin 27.9 pg (26-34); Mean Corpuscular Volume 86.6 fl (80-100); Monocytes Absolute Auto 0.3 K/mm3 (0.1-0.6); Monocytes Percent Auto 7.1 % (2.6-8.5); Neutrophils Absolute Auto 3.2 K/mm3 (1.3-6.7); Red Blood Count 2.98 M/mm3 (4.6-6.20); Red Cell Distribution Width 17.3 % (11.5-14.5); White Blood Count 4.2 K/mm3 (4.5-10.0)
[2020-04-13 14:05] LABS: Platelet Count Result < 3 k/mm3 (150-375)
[2020-04-13 14:07] LABS: Platelet Estimate Decreased (Adequate)
[2020-04-13 14:08] LABS: Hypochromasia 1+ (NORMAL)
[2020-04-13 14:09] LABS: Anisocytosis 1+ (NORMAL); Ovalocytes 2+ (NORMAL); Tear Drop Cells 1+ (NORMAL)
--- NOTE | 2020-04-13 17:42 | WPDONCPN ---
Progress Note: A/P - Additional Plan Likely myeloproliferative disorder. Case was discussed with Dr. Kuhn and Dr. Klein pathologist at [facility]. No evidence of acute leukemia. Reticulin stain was positive suggesting myeloproliferative disorder/myelofibrosis. I will check JAK2 mutation as well as BCR-ABL translocation. Thrombocytopenia. Platelet antibodies remains pending. Continue Solu-Medrol at the current dose and continue IVIG administration. GI prophylaxis. Continue Protonix. - Time Spent With Patient Total time spent is greater than 50% in coordination of care (as documented) at patient's floor/unit and/or counseling patient: 25 - 35 minutes Subjective Interval history: Likely myeloproliferative disease Pancytopenia Review of Systems - Review of Systems Patient seems to be comfortable. He denies any chest pain and shortness of breath. Denies any further nausea. No bleeding and bruising. - Neurologic Reports system reviewed and no additional complaints, except as documented, Reports hearing normal, Denies confusion Exam Vital signs: Amie Manriquez. Assessment of coma and impaired consciousness. A practical scale. Lancet 1974; 2:81-4. Lungs are clear to auscultation bilaterally Cardiovascular regular rate rhythm no murmurs Abdomen soft nontender nondistended bowel sounds are positive Extremities no edema PN: Objective Data - Labs CBC & Chem 7: 04/13/20 13:11 04/13/20 13:21 Labs: Laboratory Results - last 24 hr 04/13/20 04/13/20 13:11 13:21 WBC 4.2 L RBC 2.98 L Hgb 8.3 L Hct 25.8 L MCV 86.6 MCH 27.9 MCHC 32.2 RDW 17.3 H Plt Count < 3 L* MPV TNP Immature Gran % (Auto) 1.7 H Neut % (Auto) 75.0 H Lymph % (Auto) 16.2 L [place] % (Auto) 7.1 Eos % (Auto) 0.0 Baso % (Auto) 0.0 L Lymph # (Auto) 0.68 L [place] # (Auto) 0.3 Eos # (Auto) 0.0 Baso # (Auto) 0.0 Abs Immat Gran (auto) 0.07 H Absolute Neuts (auto) 3.2 Absolute Nucleated RBC 0.0 Nucleated RBC % 0.0 Platelet Estimate Decreased % Immature Plt Fraction 23.8 H Hypochromasia 1+ Anisocytosis 1+ Tear Drop Cells 1+ Ovalocytes 2+ Sodium 142 Potassium 3.7 Chloride 108 H Carbon Dioxide 29 Anion Gap 5 L BUN 23 H Creatinine 0.80 Estim Creat Clear Calc 106 Estimated GFR > 60 Glucose 122 H Calcium 8.0 L
[2020-04-13 20:14] LABS: Haptoglobin 41 mg/dL (43-212)
[2020-04-14 04:53] LABS: Basophils Percent Auto 0.3 % (0.2-1.2); Hematocrit 23.9 % (42.0-52.0); Hemoglobin 7.5 g/dL (14.0-18.0); Immature Granulocyte Absolute 0.12 K/mm3 (0.00-0.031); Immature Granulocyte Percent A 3.6 % (0-0.5); Immature Platelet Fraction Pct 26.2 % (0.9-11.2); Lymphocytes Percent Auto 15.1 % (18.3-44.2); Mean Corpuscular HGB Conc 31.4 g/dl (32-36); Mean Corpuscular Volume 89.2 fl (80-100); Monocytes Absolute Auto 0.2 K/mm3 (0.1-0.6); Monocytes Percent Auto 6.3 % (2.6-8.5); Neutrophils Absolute Auto 2.5 K/mm3 (1.3-6.7); Neutrophils Percent Auto 74.7 % (45.5-73.1); Nucleated Red Blood Cells Perc 0.6 % (0.0-0.2); Red Blood Count 2.68 M/mm3 (4.6-6.20); Red Cell Distribution Width 17.5 % (11.5-14.5); White Blood Count 3.3 K/mm3 (4.5-10.0)
[2020-04-14 05:00] VITALS: BP 104/69; PULSE 53; RESP 16; TEMP 36.4; O2SAT 99
[2020-04-14] MEDS: methylPREDNISolone SOD SUCC 125 MG VIAL 80 MG IV PUSH (05:11)
[2020-04-14 05:17] LABS: Platelet Count Result 3 k/mm3 (150-375)
[2020-04-14 08:00] VITALS: BP 127/73; PULSE 56; RESP 16; TEMP 36.4; O2SAT 97
[2020-04-14] MEDS: PANTOPRAZOLE 40 MG TABLET PO (08:44)
[2020-04-14] MEDS: DOXYCYCLINE HYCLATE 100 MG TABLET PO (08:44)
--- NOTE | 2020-04-14 16:00 | PC.NURSE ---
Transfer received from ICU room 5. Patient oriented to the room.
--- NOTE | 2020-04-14 16:11 | PC.NURSE ---
This patient, Willy Gamboa, was transferred to [facility] on 04/14/20 at 1555. Personal belongings sent with patient. Report given to BRANDI Muse. Appropriate documentation sent with patient.
--- NOTE | 2020-04-14 17:29 | WPDONCPN ---
Progress Note: A/P - Additional Plan Likely myeloproliferative disorder. Left noted and stable without any improvement in the platelet count. Testing for myelofibrosis has been ordered and pending. Since he is unresponsive to steroid we will start tapering the steroid and reduce the dose to 60 mg twice a day. I have also discussed this case with Dr. Gastelum at [facility]. Since patient is quite stable be will likely discharge home tomorrow with follow-up with Dr. Gastelum early next week. Thrombocytopenia. Platelet antibodies remains pending. Patient is unresponsive to the steroid and IV IgG. I will stop IV IgG treatment. I will start tapering the prednisone. GI prophylaxis. Patient is on Protonix. - Time Spent With Patient Total time spent is greater than 50% in coordination of care (as documented) at patient's floor/unit and/or counseling patient: 25 - 35 minutes Subjective Interval history: Likely myeloproliferative disease Pancytopenia Review of Systems - Review of Systems Patient seems to be quite comfortable. He denies any abdominal pain. No nausea vomiting. No diarrhea. No rash. No bleeding. He is anxious about finding a diagnosis. No other new complaints today. - Neurologic Reports system reviewed and no additional complaints, except as documented, Reports hearing normal, Denies confusion Exam Vital signs: Amie Manriquez. Assessment of coma and impaired consciousness. A practical scale. Lancet 1974; 2:81-4. Lungs are clear to auscultation bilaterally Cardiovascular regular rate rhythm no murmurs Abdomen soft nontender nondistended bowel sounds are positive Extremities no edema Narrative: Lungs are clear to auscultation bilaterally Cardiovascular regular rate rhythm no murmurs Abdomen soft nontender nondistended bowel sounds are positive Extremities no edema PN: Objective Data - Labs CBC & Chem 7: 04/14/20 04:24 04/13/20 13:21 Labs: Laboratory Results - last 24 hr 04/10/20 04/14/20 16:12 04:24 WBC 3.3 L RBC 2.68 L Hgb 7.5 L Hct 23.9 L MCV 89.2 MCH 28.0 MCHC 31.4 L RDW 17.5 H Plt Count 3 L* MPV TNP Immature Gran % (Auto) 3.6 H Neut % (Auto) 74.7 H Lymph % (Auto) 15.1 L [place] % (Auto) 6.3 Eos % (Auto) 0.0 Baso % (Auto) 0.3 Lymph # (Auto) 0.50 L [place] # (Auto) 0.2 Eos # (Auto) 0.0 Baso # (Auto) 0.0 Abs Immat Gran (auto) 0.12 H Absolute Neuts (auto) 2.5 Absolute Nucleated RBC 0.0 Nucleated RBC % 0.6 H % Immature Plt Fraction 26.2 H Haptoglobin 41 L
[2020-04-14] MEDS: methylPREDNISolone SOD SUCC 125 MG VIAL 60 MG IV PUSH (20:16)
[2020-04-14 20:24] LABS: Albumin 3.3 g/dL (3.8-4.8); Alpha 1 Globulin 0.5 g/dL (0.2-0.3); Alpha 2 Globulin 0.6 g/dL (0.5-0.9); Beta 1 Globulin 0.3 g/dL (0.4-0.6); Gamma Globulin 0.9 g/dL (0.8-1.7); Protein, Total 5.8 g/dL (6.1-8.1)
[2020-04-14 20:36] VITALS: BP 107/54; PULSE 61; RESP 18; TEMP 36.4; O2SAT 98
[2020-04-14 22:50] VITALS: PULSE 60; O2SAT 98
[2020-04-15 02:49] VITALS: PULSE 58; O2SAT 97
[2020-04-15 04:15] VITALS: BP 100/51; PULSE 48; RESP 18; TEMP 36.4; O2SAT 98
[2020-04-15 05:46] LABS: Basophils Percent Auto 0.3 % (0.2-1.2); Hemoglobin 7.8 g/dL (14.0-18.0); Immature Granulocyte Percent A 2.7 % (0-0.5); Immature Platelet Fraction Pct 15.2 % (0.9-11.2); Lymphocytes Absolute Auto 0.61 K/mm3 (0.9-3.2); Lymphocytes Percent Auto 16.6 % (18.3-44.2); Mean Corpuscular HGB Conc 31.2 g/dl (32-36); Mean Corpuscular Hemoglobin 28.2 pg (26-34); Mean Corpuscular Volume 90.3 fl (80-100); Monocytes Absolute Auto 0.3 K/mm3 (0.1-0.6); Neutrophils Absolute Auto 2.6 K/mm3 (1.3-6.7); Neutrophils Percent Auto 71.4 % (45.5-73.1); Nucleated Red Blood Cells Absolute Auto 0.1 K/mm3 (0.0-0.012); Nucleated Red Blood Cells Perc 1.6 % (0.0-0.2); Red Blood Count 2.77 M/mm3 (4.6-6.20); Red Cell Distribution Width 17.9 % (11.5-14.5); White Blood Count 3.7 K/mm3 (4.5-10.0)
[2020-04-15 05:57] LABS: Platelet Count Result 17 k/mm3 (150-375)
[2020-04-15] MEDS: PANTOPRAZOLE 40 MG TABLET PO (08:41)
[2020-04-15] MEDS: methylPREDNISolone SOD SUCC 125 MG VIAL 60 MG IV PUSH (08:41)
[2020-04-15] MEDS: DOXYCYCLINE HYCLATE 100 MG TABLET PO (08:41)
[2020-04-15 09:00] VITALS: BP 132/68; PULSE 58; RESP 16; TEMP 36.2; O2SAT 99
--- NOTE | 2020-04-15 13:33 | PM.IMPN ---
Progress Note: A&P Time Spent With Patient Time with patient: Greater than 35 minutes Subjective Date/time seen: 04/15/20 13:33 Late entry note patient was seen and examined on 04/14/20 No new issues overnight Review of Systems Review of Systems: Narrative: No issues. Exam Narrative: Exam Narrative: Sitting in bed. Const: General: comfortable, no acute distress, well developed, alert, awake and Physically active Nutritional Appearance: average body habitus Orientation/consciousness: patient oriented x3 Limitations: no limitations HENMT: Head: normal to inspection and normocephalic Ears: hearing grossly normal bilaterally General nose exam: Normal external nose present Face and sinus: normal facial exam Eyes: General: appearance normal, both eyes and all related structures Pupils: Equal, round and reactive pupils present EOM: EOMs intact bilaterally Neck: Neck: no lymphadenopathy, supple and no JVD Resp: Effort & Inspection: normal respiratory effort and able to speak in complete sentences Auscultation: clear to auscultation bilaterally Cardio: Jugular venous distension: no JVD Rate: regular rate Rhythm: regular rhythm GI: GI Palp: Yes Soft to palpation and Yes No hepatosplenomegaly present Skin: Rashes: rashes noted (petechial rash in B/L LE) Neuro: General: patient oriented x3 and CN's II-XI intact bilaterally Cranial nerves: Yes CN's II-XII intact bilaterally, Yes Equal, round and reactive pupils present and Yes Bilaterally intact EOM present Cognition (Neuro): normal cognition Speech: normal speech Gait exam (Neuro): Normal gait present Motor exam (neuro): 5/5 motor strength present throughout Extrem: General: no pedal edema Objective Data Vital Signs Vital Signs: Vital Signs - 24 hr 04/14/20 20:36 04/14/20 22:50 04/15/20 02:49 Temperature 97.6 F Pulse Rate 61 60 58 L Respiratory Rate 18 Blood Pressure 107/54 L Pulse Oximetry 98 98 97 04/15/20 04:15 04/15/20 09:00 Temperature 97.6 F 97.2 F L Pulse Rate 48 L 58 L Respiratory Rate 18 16 Blood Pressure 100/51 L 132/68 Pulse Oximetry 98 99 Intake/Output Intake/Output: Intake & Output 04/12/20 04/13/20 04/14/20 04/15/20 23:59 23:59 23:59 23:59 Intake Total 3150 3360 2350 1870 Output Total 3665 2625 2350 Balance 1575 735 0 1870 Meds/Results Medications: Active Medications Generic Name Dose Route Start Last Admin Trade Name Freq PRN Reason Stop Dose Admin Acetaminophen 650 mg 04/11/20 18:05 04/11/20 19:57 Acetaminophen 325 Mg Tablet PO 650 mg Q6H PRN Administration Mild Pain (1-3) Doxycycline Hyclate 100 mg 04/11/20 09:00 04/15/20 08:41 Doxycycline Hyclate 100 Mg Tablet PO 100 mg DAILY CLARICE Administration Methylprednisolone Sodium Succinate 60 mg 04/14/20 21:00 04/15/20 08:41 Methylprednisolone Sod Succ 125 Mg Vial IV PUSH 60 mg Q12HR CLARICE Administration Ondansetron HCl 4 mg 04/10/20 15:40 Ondansetron Inj 4 Mg/2 Ml Vial IV PUSH Q6H PRN Nausea And Vomiting Pantoprazole Sodium 40 mg 04/12/20 09:00 04/15/20 08:41 Pantoprazole 40 Mg Tablet PO 40 mg QAM CLARICE Administration Radiology Results: ITS Impressions Biopsy,Fluoroscopy Guided 04/11/20 13:27 IMPRESSION: 1. Fluoro-guided bone marrow aspiration. 2. Fluoro-guided bone marrow core biopsy. Labs Labs: Laboratory Results - last 24 hr 04/10/20 04/10/20 04/15/20 16:00 16:12 04:57 WBC 3.7 L RBC 2.77 L Hgb 7.8 L Hct 25.0 L MCV 90.3 MCH 28.2 MCHC 31.2 L RDW 17.9 H Plt Count 17 L* D MPV TNP Immature Gran % (Auto) 2.7 H Neut % (Auto) 71.4 Lymph % (Auto) 16.6 L [place] % (Auto) 9.0 H Eos % (Auto) 0.0 Baso % (Auto) 0.3 Lymph # (Auto) 0.61 L [place] # (Auto) 0.3 Eos # (Auto) 0.0 Baso # (Auto) 0.0 Abs Immat Gran (auto) 0.10 H Absolute Neuts (auto) 2.6 Absolute Nucleated RBC 0.1 H Nucleated RBC % 1.6 H % Immatu
[2020-04-15 13:56] VITALS: BP 132/74; PULSE 83; RESP 17; TEMP 36.2; O2SAT 99
--- NOTE | 2020-04-15 14:31 | PM.DS ---
DS: Admitting Diagnosis Admitting Diagnosis Admitting Diagnosis: (1) Pancytopenia (2) Syncopal episodes (3) Rosacea (4) HTN (hypertension) DS: Discharge Diagnosis Discharge Diagnosis (1) Pancytopenia: Code(s): D61.818 - Other pancytopenia Status: Acute Assessment and Plan: S/p multiple platelet units transfusion with no response IVIG did not have response as well No response to steroids either Awaiting Bone marrow bx Will follow up at [facility] (2) Vasovagal episode: Code(s): R55 - Syncope and collapse Status: Acute Assessment and Plan: Vasovagal in nature. No new episodes (3) HTN (hypertension): Code(s): I10 - Essential (primary) hypertension Status: Acute Assessment and Plan: Continue home meds. Follow up in he outpatient setting (4) Rosacea: Code(s): L71.9 - Rosacea, unspecified Status: Chronic Assessment and Plan: On Doxycycline DS: Summary Hospital Course Reason for hospitalization: Cough. Hospital Course: Willy Gamboa is a 60 year old male the patient was a direct admit from [facility]. The patient has been feeling weak and fatigued for approximately 3 days. He has been having dark urine. He noticed some petechiae on his chest and lower extremities. Otherwise the patient has not noticed any bleeding. No blood in his stool and he has not been coughing up any blood. He states that he has been coughing but it has been a thicker phlegm. He said that he did have some chills and some night sweats but no fever that he is aware of. He denied any chest pain or shortness of breath. The patient has been weak and dizzy. The patient stated that he had normal labs last month. He has had no history of any HIV or any cancer. He said that he had a normal physical about 2 or 3 months ago. He is a nonsmoker, no abdominal pain or nausea vomiting. Patient has a past medical history of hypertension.No new meds. The patient appears to be very comfortable. The patient did have a CT a performed with no evidence of any pulmonary embolism. But evidence of splenomegaly. He did have an elevated D-dimer. He had no discomfort. White count was noted to be 1.8. Consults obtained: 1-Hem/Onc 2-Cardiology While in his hospital stay patient had a syncopal episode while having his blood drawn and Cardiology was consulted. It was felt that this was purely vasovagal in nature and no further evaluation was warranted. Hem/onc was consulted for Pancytopenia refractory to IVIG, steroids and platelet transfusion. Procedures done: Bone Marrow Bx Patient remained stable throughout his hospital stay and will follow up in the outpatient setting with [facility] Marrow specialist at [facility] Status at Discharge Cognitive/behavioral status at discharge: AOx3 Functional status at discharge: independent ambulation Overall status at discharge: patient is back to baseline Time Spent with Patient Time attestation: Total time spent providing and/or coordinating discharge services: Time spent: Greater than 30 minutes Exam Narrative: Exam Narrative: Sitting in chair. Const: General: cooperative, healthy appearing, comfortable, no acute distress, alert, awake and Physically active Nutritional Appearance: overweight Orientation/consciousness: patient oriented x3 HENMT: Head: normal to inspection and normocephalic Ears: hearing grossly normal bilaterally General nose exam: Normal external nose present Face and sinus: normal facial exam Eyes: General: appearance normal, both eyes and all related structures Pupils: Equal, round and reactive pupils present EOM: EOMs intact bilaterally Neck: Neck: no lymphadenopathy, supple and no JVD Resp: Effort & Inspection: able to speak in complete sentences Auscultation: clear to auscultation bilaterally Cardio: Jugular venous distension: no JVD Rate: regular rate Rhythm: regular rhythm GI: GI Pal
--- NOTE | 2020-04-15 15:21 | WPDONCPN ---
Progress Note: A/P - Additional Plan Myelofibrosis. JAK2 mutation pending. Patient is ready to be discharged home. He will follow-up with Dr. Calixto on Saturday. Thrombocytopenia. Patient is status post IV IgG treatment. Currently is on prednisone and is dry dose reduced to 60 mg with 10 mg taper every 3 days. Platelet count has improved. He is asymptomatic. Patient will also follow up with me in 2 weeks. - Time Spent With Patient Total time spent is greater than 50% in coordination of care (as documented) at patient's floor/unit and/or counseling patient: 15 - 25 minutes Subjective Interval history: Likely myeloproliferative disease Pancytopenia Review of Systems - Review of Systems Patient denies any chest pain and shortness of breath. He feels comfortable. He does have some cough but no fevers and chills. No bleeding and bruising. He is ready to be discharged home. - Neurologic Reports system reviewed and no additional complaints, except as documented, Reports hearing normal, Denies confusion Exam Vital signs: Amie Manriquez. Assessment of coma and impaired consciousness. A practical scale. Lancet 1974; 2:81-4. Lungs are clear to auscultation bilaterally Cardiovascular regular rate rhythm no murmurs Abdomen soft nontender nondistended bowel sounds are positive Extremities no edema Narrative: Lungs are clear to auscultation bilaterally Cardiovascular regular rate rhythm no murmurs Abdomen soft nontender nondistended bowel sounds are positive Extremities no edema PN: Objective Data - Labs CBC & Chem 7: 04/15/20 04:57 04/13/20 13:21 Labs: Laboratory Results - last 24 hr 04/10/20 04/10/20 04/15/20 16:00 16:12 04:57 WBC 3.7 L RBC 2.77 L Hgb 7.8 L Hct 25.0 L MCV 90.3 MCH 28.2 MCHC 31.2 L RDW 17.9 H Plt Count 17 L* D MPV TNP Immature Gran % (Auto) 2.7 H Neut % (Auto) 71.4 Lymph % (Auto) 16.6 L [place] % (Auto) 9.0 H Eos % (Auto) 0.0 Baso % (Auto) 0.3 Lymph # (Auto) 0.61 L [place] # (Auto) 0.3 Eos # (Auto) 0.0 Baso # (Auto) 0.0 Abs Immat Gran (auto) 0.10 H Absolute Neuts (auto) 2.6 Absolute Nucleated RBC 0.1 H Nucleated RBC % 1.6 H % Immature Plt Fraction 15.2 H Total Protein 5.8 L Albumin 3.3 L Wnopn-2-Zdxiagbif 0.5 H Qfbvl-1-Jflurgjfy 0.6 Mzhh-7-Fzkojaaz 0.3 L Rddj-7-Domhmyce 0.3 Gamma Globulins 0.9 Abnorm Protein Band 1 see below Abnorm Protein Band 3 Not Reportable PEP Interpretation see below A Blood Type A Positive Antibody Screen Negative ANA, IgG Interpret Negative ANA, Poly Interpret Negative Crossmatch See Detail
--- NOTE | 2020-04-15 15:40 | PC.NURSE ---
On 04/15/20, the student, [Haile Smith], provided care and completed [facility] documentation on this patient. I have reviewed the student's documentation and agree with the findings.
[2020-04-15 22:17] LABS: Platelet Antibody, Direct IgG POSITIVE (NEGATIVE)
[2020-04-16 18:17] LABS: Soluble Transferrin Receptor 2.08 mg/L (0.76-1.76)
[2020-04-18 09:15] LABS: BCR/abl Prior Result Not Given
[2020-04-18 10:00] LABS: BCR/abl P190 Not Detected; BCR/abl P210 Not Detected
[2020-04-18 10:01] LABS: BCR/abl P190 Chg YES; BCR/abl P210 Chg YES
[2020-04-19 15:00] LABS: CALR Exon 9 Mutation Not Detected (Not Detected); CSF3R Exon 14/17 Mutation Not Detected (Not Detected); Clinical Indication Not Given; JAK2 Exon 12 Mutation Not Detected (Not Detected); JAK2 V617F Mutation Not Detected (Not Detected); MPL Exon 10 Mutation Not Detected (Not Detected)
== END 2020-04-15 15:50 | disposition home or self-care (01) | DRG 809 ==
LOC: ANH2MED 15:48 → ANHICU 04-11 09:59 → ANH2MED 04-15 13:47 → ANHICU 04-19 12:10
PROVIDERS: Internal Medicine Hematology & Oncology; Radiology Diagnostic Radiology; Admitting Provider Family Medicine; PCP Internal Medicine; Referring Provider Nurse Practitioner; Visit Provider Internal Medicine
PROC: 07DR3ZX Extraction of Iliac Bone Marrow, Percutaneous Approach, Diagnostic (ICD-10-PCS; principal; 2020-04-11 12:00)
DX: D61.818 Other pancytopenia (principal); D75.81 Myelofibrosis; R55 Syncope and collapse; I10 Essential (primary) hypertension; L71.9 Rosacea, unspecified; D69.6 Thrombocytopenia, unspecified
CPT/HCPCS: 36415; 36430; 38222; 80048; 80053; 81206; 81207; 81219; 81270; 81402; 81403; 81479; 82247; 82248; 82607; 82728; 82746; 82948; 83010; 83540; 83550; 83605; 83615; 83735; 84155; 84165; 84238; 84443; 84466; 84484; 85025; 85027; 85046; 85055; 85610; 86023; 86703; 86850; 86880; 86900; 86901; 86923; 88184; 88185; 88305; 88311; 88313; 88342; 88360; P9036; A9270; G0432; J1459; J2930; J3010; J7040; J7050; P9016; P9034

== ENCOUNTER 2020-05-18 09:00 | Emergency (ER) | payer BC, SELFPAY ==
[2020-05-18] VITALS (7 sets, daily range): BP systolic 114–131; BP diastolic 69–81; PULSE 73–94; RESP 14–18; TEMP 36.4–37.1; O2SAT 95–99
--- NOTE | 2020-05-18 09:22 | ED.GENADULT ---
HPI - General Adult General Chief complaint: Recheck/Abnormal Lab/Rx Stated complaint: DR SENT TO ER FOR LOW PLATLETTES Source: patient Mode of arrival: ambulatory Limitations: no limitations History of Present Illness HPI narrative: Willy is a pleasant 60M with a PMH of ITP and HTN that came tot he ER after his manager document control karen labs and he was found to have a critically low platelet count. No signs of bleeding including hematuria, hematochezia, hematemesis or new bruising. Related Data Home Medications Medication Instructions Recorded Confirmed Mirvaso 1 applic TOPICAL DAILY 04/10/20 05/18/20 carvedilol 3.125 mg PO BID 04/10/20 05/18/20 desonide 1 applic TOPICAL PRN 04/10/20 05/18/20 doxycycline hyclate 100 mg PO DAILY 04/10/20 05/18/20 felodipine 5 mg PO DAILY 04/10/20 05/18/20 losartan-hydrochlorothiazide 1 tablet PO DAILY 04/10/20 05/18/20 Allergies Allergy/AdvReac Type Severity Reaction Status Date / Time No Known Allergies Allergy Verified 04/10/20 14:36 Review of Systems Constitutional: Constitutional: Reports no additional constitutional complaints Eyes: Eyes: Reports no additional eye complaints ENT: Reports system reviewed and no additional complaints, except as documented Cardiovascular: Cardiovascular: Reports no additional cardiovascular complaints Respiratory: Respiratory: Reports no additional respiratory complaints Gastrointestinal: Gastrointestinal: Reports no additional gastrointestinal complaints Genitourinary: Genitourinary: Reports no additional male genitourinary complaints Musculoskeletal: Musculoskeletal: Reports no additional musculoskeletal complaints Integumentary/Breasts: Skin/Breast: Reports system reviewed and no additional complaints, except as docu Neurologic: Reports system reviewed and no additional complaints, except as documented Psychiatric: Psychiatric: Reports no additional psychiatric complaints Endocrine: Endocrine: Reports no additional endocrine complaints Hematologic/Lymphatic: Hematologic/Lymphatic: Reports as per HPI Allergic/Immunologic: Allergic/Immunologic: Reports no additional allergic/immunologic complaints [facility] Past Medical History Medical History HTN (hypertension) Rosacea Surgical History Surgical History No pertinent past surgical history Family History Family History Mother Lung cancer Father Lung cancer Social History Social History Social History: The patient is and lives with his . He states that she is the durable power [place] attorney as well as the 2 children that they have. The patient now needs to be a full code. 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 He is a lifelong nonsmoker. He does not use any alcohol. He said the last time he drank anything was wine about 3 months ago. No marijuana or illicit drugs. Smoking status: Never smoker Alcohol intake: former Substance use: never Substance use type: does not use Spiritual care concerns: No Exam Const: General: no acute distress and alert Orientation/consciousness: patient oriented x3 Limitations: No altered mental status HENMT: Head: normal to inspection Mouth: Yes Normal oral and palatal mucosa present Eyes: Conjunctivae: conjunctivae normal Pupils: Equal, round and reactive pupils present Neck: Neck: normal visual inspection Chest: Chest palpation & inspection: normal inspection of the chest Resp: Effort & Inspection: normal respiratory effort Auscultation: clear to auscultation bilaterally Cardio: Rate: regular rate Rhythm: regular rhythm Heart sounds: no murmurs GI: Inspection: non-distended GI Palp: Yes Soft to palpation, No Tenderness to palpation present (GI) and No Gua
[2020-05-18 09:27] LABS: Hematocrit 35.5 % (40.0-54.0); Hemoglobin 11.5 g/dL (14.0-18.0); Immature Platelet Fraction Pct 4.9 % (1.0-7.0); Mean Corpuscular HGB Conc 32.4 g/dL (32.0-36.0); Mean Corpuscular Hemoglobin 30.1 pg (27.0-31.0); Mean Corpuscular Volume 92.9 fL (78.0-102.0); Red Blood Count 3.82 M/mm3 (4.70-6.10); Red Cell Distribution Width 17.9 % (11.6-14.4); White Blood Count 4.1 K/mm3 (4.8-10.8)
[2020-05-18 09:30] LABS: Platelet Count Result 7 K/mm3 (150-420)
[2020-05-18 09:40] LABS: Prothrombin Time 10.9 Seconds (9.50-12.10)
[2020-05-18 09:43] LABS: Alanine Aminotransferase 35 U/L (16-63); Albumin Level 3.2 g/dL (3.4-5.0); Alkaline Phosphatase 47 U/L (46-116); Anion Gap 5 mmol/L (8-16); Aspartate Amino Transferase 17 U/L (15-37); Bilirubin,Total 1.4 mg/dL (0.00-1.00); Blood Urea Nitrogen 36 mg/dL (7-18); Calcium 8.2 mg/dL (8.5-10.1); Carbon Dioxide 28 mmol/L (21-32); Chloride 103 mmol/L (98-108); Estimated CRCL calculation 93 ml/min; Estimated Glomerular Filt Rate > 60; Glucose 103 mg/dL (70-99); Osmolality Calculated 290 mOsm/kg (285-295); Potassium 3.9 mmol/L (3.5-5.1); Sodium 136 mmol/L (136-145); Total Protein 6.8 g/dL (6.4-8.2)
[2020-05-18 10:01] LABS: Total Cells Counted 100
[2020-05-18 10:02] LABS: Band Neutrophils Percent 3 % (0-6); Basophils Percent Manual 0 % (0-1); Eosinophils Absolute Manual 0.04 K/mm3 (0.02-0.5); Eosinophils Percent Manual 1 % (1-6); Lymphocytes Absolute Manual 0.49 K/mm3 (1.1-4.5); Lymphocytes Percent Manual 12 % (18-44); Monocytes Absolute Manual 0.36 K/mm3 (0.1-0.90); Monocytes Percent Manual 9 % (3-9); Neutrophils Absolute Manual 3.11 K/mm3 (1.3-6.7); Neutrophils Percent Manual 73 % (46-73); Platelet Estimate Decreased (Adequate)
[2020-05-18] MEDS: ACETAMINOPHEN 500 MG TABLET 1000 MG PO (10:06)
[2020-05-18] MEDS: predniSONE 20 MG TABLET 60 MG PO (14:15)
--- NOTE | 2020-05-18 14:25 | PC.NURSE ---
Patient admitted to room 226 as ER hold for Platelet adminstration. Patient transferred from wheelchair to chair with no assist. Call light and belongings provided. Vital signs stable. Telemetry applied per order. Pt. denies any further needs.
--- NOTE | 2020-05-18 14:31 | PC.NURSE ---
TELEPHONE REPORT PROVIDED TO BRANDI ALVARES. PT TRANSFERRED TO ROOM 226 ER HOLD
--- NOTE | 2020-05-18 15:55 | PC.NURSE ---
pt is visibly upset about wait time for platelets, lab called and reports that according to their system the platelets have not shipped yet, dr arias wishes pt to stay until he can get platelets, pt agrees to wait for them at this time, given phone varitype operator, declines needs, call light in reach
--- NOTE | 2020-05-18 16:21 | PC.NURSE ---
gavin rose has contacted lab and notified them that the transportation maintenance worker has just left the facility in [facility], pt is aware
--- NOTE | 2020-05-18 17:42 | PC.NURSE ---
platelets started, pt finished with dinner
[2020-05-18 18:53] LABS: Hematocrit 34.7 % (40.0-54.0); Hemoglobin 11.2 g/dL (14.0-18.0); Immature Platelet Fraction Pct 1.5 % (1.0-7.0); Mean Corpuscular HGB Conc 32.3 g/dL (32.0-36.0); Mean Corpuscular Hemoglobin 29.9 pg (27.0-31.0); Mean Corpuscular Volume 92.5 fL (78.0-102.0); Mean Platelet Volume 10.2 fl (8.7-11.0); Red Blood Count 3.75 M/mm3 (4.70-6.10); Red Cell Distribution Width 18.4 % (11.6-14.4); White Blood Count 3.6 K/mm3 (4.8-10.8)
[2020-05-18 18:57] LABS: Platelet Count Result 18 K/mm3 (150-420)
[2020-05-18 19:30] LABS: Band Neutrophils Percent 0 % (0-6); Basophils Absolute Manual 0.03 K/mm3 (0-0.1); Basophils Percent Manual 1 % (0-1); Eosinophils Percent Manual 0 % (1-6); Lymphocytes Absolute Manual 0.54 K/mm3 (1.1-4.5); Lymphocytes Percent Manual 15 % (18-44); Monocytes Absolute Manual 0.07 K/mm3 (0.1-0.90); Monocytes Percent Manual 2 % (3-9); Neutrophils Absolute Manual 2.95 K/mm3 (1.3-6.7); Neutrophils Percent Manual 82 % (46-73); Total Cells Counted 100
[2020-05-18 19:31] LABS: Platelet Estimate Decreased (Adequate)
== END 2020-05-18 18:51 | disposition home or self-care (01) ==
LOC: CHSED 09:03 → CHS2ND 14:26
PROVIDERS: Emergency Provider Family Medicine; PCP Internal Medicine
DX: D69.3 Immune thrombocytopenic purpura (principal)
CPT/HCPCS: 36415; 36430; 80053; 85025; 85055; 85610; 86850; 86900; 86901; 99281; 99283; J7050; J7512; P9034

== ENCOUNTER 2020-07-27 12:04 | Outpatient (CLI) | payer BC, SELFPAY ==
[2020-07-27 12:18] LABS: Hematocrit 38.9 % (40.0-54.0); Hemoglobin 12.7 g/dL (14.0-18.0); Immature Platelet Fraction Pct 3.8 % (1.0-7.0); Mean Corpuscular HGB Conc 32.6 g/dL (32.0-36.0); Mean Corpuscular Hemoglobin 28.6 pg (27.0-31.0); Mean Corpuscular Volume 87.6 fL (78.0-102.0); Mean Platelet Volume 10.5 fl (8.7-11.0); Platelet Count Result 46 K/mm3 (150-420); Red Blood Count 4.44 M/mm3 (4.70-6.10); Red Cell Distribution Width 13.9 % (11.6-14.4); White Blood Count 6.3 K/mm3 (4.8-10.8)
[2020-07-27 13:05] LABS: Alanine Aminotransferase 59 U/L (16-63); Albumin Level 3.7 g/dL (3.4-5.0); Alkaline Phosphatase 64 U/L (46-116); Anion Gap 9 mmol/L (8-16); Aspartate Amino Transferase 30 U/L (15-37); Bilirubin,Total 1.6 mg/dL (0.00-1.00); Blood Urea Nitrogen 28 mg/dL (7-18); Calcium 8.2 mg/dL (8.5-10.1); Carbon Dioxide 29 mmol/L (21-32); Chloride 107 mmol/L (98-108); Estimated Glomerular Filt Rate > 60; Glucose 129 mg/dL (70-99); NT Pro B Type Natriuretic Pept 62 pg/mL (0-125); Osmolality Calculated 307 mOsm/kg (285-295); Potassium 3.5 mmol/L (3.5-5.1); Sodium 145 mmol/L (136-145); Total Protein 6.3 g/dL (6.4-8.2)
[2020-07-27 13:14] LABS: Band Neutrophils Percent 1 % (0-6); Basophils Absolute Manual 0.06 K/mm3 (0-0.1); Basophils Percent Manual 1 % (0-1); Eosinophils Absolute Manual 0.06 K/mm3 (0.02-0.5); Eosinophils Percent Manual 1 % (1-6); Lymphocytes Absolute Manual 1.19 K/mm3 (1.1-4.5); Lymphocytes Percent Manual 19 % (18-44); Metamyelocytes Percent 3 %; Monocytes Absolute Manual 0.69 K/mm3 (0.1-0.90); Monocytes Percent Manual 11 % (3-9); Myelocytes Percent 3 %; Neutrophils Percent Manual 61 % (46-73); Platelet Estimate Decreased (Adequate); Total Cells Counted 100
== END 2020-07-27 12:05 | disposition home or self-care (01) ==
LOC: CHSLAB 12:07
PROVIDERS: PCP Internal Medicine; Visit Provider Internal Medicine
DX: I10 Essential (primary) hypertension (principal)
CPT/HCPCS: 36415; 80053; 83880; 85025; 85055

== ENCOUNTER 2020-08-01 06:49 | Emergency (ER) | payer BC, SELFPAY ==
--- NOTE | 2020-08-01 07:07 | ED.EPISTAXIS ---
HPI - Epistaxis General Chief complaint: Epistaxis Stated complaint: constant Nose bleed Source: patient and RN notes reviewed Mode of arrival: ambulatory Limitations: no limitations History of Present Illness complaint: epistaxis Location: left nostril Onset (ago): day(s) (1) Duration: intermittent Context: history of previous Treatment prior to arrival: nose pinching and stuffed nose with tissue Related Data Home Medications Medication Instructions Recorded Confirmed Mirvaso 1 applic TOPICAL DAILY 04/10/20 08/01/20 carvedilol 3.125 mg PO BID 04/10/20 08/01/20 desonide 1 applic TOPICAL PRN 04/10/20 08/01/20 doxycycline hyclate 100 mg PO DAILY 04/10/20 08/01/20 metronidazole [Metrogel] 1 applic TOPICAL BID 08/01/20 08/01/20 Allergies Allergy/AdvReac Type Severity Reaction Status Date / Time No Known Allergies Allergy Verified 04/10/20 14:36 Review of Systems Review of Systems: All systems reviewed & are unremarkable except as noted in HPI and below PMFSH Past Medical History Medical History History of ITP HTN (hypertension) Rosacea Surgical History Surgical History No pertinent past surgical history Family History Family History Mother Lung cancer Father Lung cancer Social History Social History Social History: The patient is and lives with his . He states that she is the durable power commonwealth attorney as well as the 2 children that they have. The patient now needs to be a full code. 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 He is a lifelong nonsmoker. He does not use any alcohol. He said the last time he drank anything was wine about 3 months ago. No marijuana or illicit drugs. Smoking status: Never smoker Alcohol intake: former Substance use: never Substance use type: does not use Spiritual care concerns: No Exam Const: General: healthy appearing and no acute distress Nutritional Appearance: well nourished and obese centrally obese Orientation/consciousness: patient oriented x3 HENMT: Head: normal to inspection Ears: external ears normal General nose exam: Normal external nose present and Epistaxis present on the left anterior source, active bleeding and clots present Face and sinus: normal facial exam Mouth: Yes moist mucous membranes Eyes: Conjunctivae: conjunctivae normal Pupils: Equal, round and reactive pupils present EOM: EOMs intact bilaterally Neck: Neck: normal visual inspection Resp: Effort & Inspection: normal respiratory effort Auscultation: clear to auscultation bilaterally Cardio: Rate: regular rate Rhythm: regular rhythm GI: GI Palp: Yes Soft to palpation and No Tenderness to palpation present (GI) Auscultation: normal bowel sounds Back/Spine/Pelvis: Cervical Spine: cervical ROM normal Thoracic/Lumbar Spine: thoraco-lumbar ROM normal Skin: General skin exam: normal color Rashes: no rashes Neuro: General: patient oriented x3, moves all extremities, no meningeal signs and no focal motor deficits Speech: normal speech Gait exam (Neuro): Normal gait present Extrem: General: normal to inspection and no clubbing, cyanosis or edema Psych: Appearance: grossly normal and well kempt Mental Status: mental status grossly normal Affect: normal affect Attitude: cooperative Thought content: Yes Normal thought content present Course Vital Signs Vital signs: Vital Signs Temperature 37.1 C 08/01/20 07:10 Pulse Rate 119 H 08/01/20 07:10 Respiratory Rate 20 08/01/20 07:10 Blood Pressure 138/91 H 08/01/20 07:10 Pulse Oximetry 95 08/01/20 07:10 Temperature 37.1 C 08/01/20 07:10 Pulse Rate 119 H 08/01/20 07:10 Respiratory Rate 16 08/01/20 07:40 Blood Pressure 138/91 H
[2020-08-01 07:10] VITALS: BP 138/91; PULSE 119; RESP 20; TEMP 37.1; O2SAT 95
[2020-08-01 07:40] VITALS: RESP 16
== END 2020-08-01 07:40 | disposition home or self-care (01) ==
PROVIDERS: Emergency Provider Emergency Medicine; PCP Internal Medicine
DX: R04.0 Epistaxis (principal)
CPT/HCPCS: 30901; 99282

== ENCOUNTER 2020-08-01 15:13 | Outpatient (CLI) | payer BC, SELFPAY ==
[2020-08-01 15:31] LABS: Hematocrit 34.1 % (40.0-54.0); Mean Corpuscular HGB Conc 32.3 g/dL (32.0-36.0); Mean Corpuscular Hemoglobin 28.3 pg (27.0-31.0); Mean Corpuscular Volume 87.7 fL (78.0-102.0); Red Blood Count 3.89 M/mm3 (4.70-6.10); White Blood Count 5.2 K/mm3 (4.8-10.8)
[2020-08-01 15:53] LABS: Alanine Aminotransferase 24 U/L (16-63); Albumin Level 3.2 g/dL (3.4-5.0); Alkaline Phosphatase 54 U/L (46-116); Anion Gap 9 mmol/L (8-16); Aspartate Amino Transferase 22 U/L (15-37); Bilirubin,Total 1.7 mg/dL (0.00-1.00); Blood Urea Nitrogen 20 mg/dL (7-18); Calcium 8.4 mg/dL (8.5-10.1); Carbon Dioxide 28 mmol/L (21-32); Chloride 107 mmol/L (98-108); Estimated Glomerular Filt Rate > 60; Glucose 121 mg/dL (70-99); Magnesium 2.1 mg/dL (1.8-2.4); NT Pro B Type Natriuretic Pept 369 pg/mL (0-125); Osmolality Calculated 301 mOsm/kg (285-295); Potassium 3.9 mmol/L (3.5-5.1); Sodium 144 mmol/L (136-145)
[2020-08-01 16:14] LABS: Platelet Count Result 0 K/mm3 (150-420)
[2020-08-01 16:21] LABS: Add Urine Microscopic? YES; Appearance Urine Cloudy (Clear); Bilirubin Urine 1+ (Negative); Blood Urine 3+ (Negative); Color Urine Dark Brown (Yellow); Glucose Urine UA Negative (Negative); Ketones Urine Trace (Negative); Leukocyte Esterase Ur Negative LEU/UL (Negative); Nitrate Urine Negative (Negative); Protein Urine 2+ (Negative); RBC Urine >75 /hpf (0-2); pH Urine 6.5 (5.0-8.0)
[2020-08-01 16:22] LABS: Bacteria Urine 2+ /hpf; Squamous Epithelial Cell Urine None seen /hpf (Few); WBC Urine 0-3 /hpf (0-3)
[2020-08-01 16:36] LABS: Band Neutrophils Percent 2 % (0-6); Basophils Absolute Manual 0.05 K/mm3 (0-0.1); Basophils Percent Manual 1 % (0-1); Eosinophils Percent Manual 0 % (1-6); Lymphocytes Absolute Manual 1.45 K/mm3 (1.1-4.5); Lymphocytes Percent Manual 28 % (18-44); Metamyelocytes Percent 1 %; Monocytes Absolute Manual 0.72 K/mm3 (0.1-0.90); Monocytes Percent Manual 14 % (3-9); Myelocytes Percent 3 %; Neutrophils Absolute Manual 2.75 K/mm3 (1.3-6.7); Neutrophils Percent Manual 51 % (46-73); Platelet Estimate Decreased (Adequate); Total Cells Counted 100
== END 2020-08-01 15:14 | disposition home or self-care (01) ==
LOC: CHSLAB 15:15
PROVIDERS: PCP Internal Medicine; Visit Provider Internal Medicine
DX: B99.9 Unspecified infectious disease (principal)
CPT/HCPCS: 36415; 80053; 81001; 83735; 83880; 85025; 85055; 87040

== ENCOUNTER 2020-08-01 16:18 | Emergency (ER) | payer BC, SELFPAY ==
[2020-08-01] VITALS (7 sets, daily range): BP systolic 110–136; BP diastolic 51–88; PULSE 72–88; RESP 16–20; TEMP 36.3–37.1; O2SAT 96–99
--- NOTE | 2020-08-01 16:29 | ED.WEAKNESS ---
HPI - Weakness General Chief complaint: Unspecified Stated complaint: SENT FROM DOCTOR FOR BAD LABS Source: patient and RN notes reviewed Mode of arrival: ambulatory Limitations: no limitations History of Present Illness HPI Narrative: patient has a history of ITP, he was here this morning with a nose bleed and was treated with silver nitrate cautery. Then later in the day he began having some chills and feeling weak. He went to his primary care physician who did blood work found his platelet level to be 0. Primary care physician called to have him start a transfusion and be transferred to his hand sizer at [facility]. he apparently had a low platelet count down to 46 last week and his prednisone was increased to 30 mg daily. This apparently has not helped and his platelets have gone down to 0. MD Complaint: generalized weakness Onset (ago): day(s) (1) Duration: constant Location: generalized Migration: none Severity: moderate Relieving factors: none Exacerbating factors: exertion Context: recent illness and history of similar Associated symptoms: denies other symptoms Related Data Home Medications Medication Instructions Recorded Confirmed Mirvaso 1 applic TOPICAL DAILY 04/10/20 08/01/20 carvedilol 3.125 mg PO BID 04/10/20 08/01/20 doxycycline hyclate 100 mg PO DAILY 04/10/20 08/01/20 Allergies Allergy/AdvReac Type Severity Reaction Status Date / Time No Known Allergies Allergy Verified 04/10/20 14:36 Review of Systems Review of Systems: All systems reviewed & are unremarkable except as noted in HPI and below PMFSH Past Medical History Medical History History of ITP HTN (hypertension) Rosacea Surgical History Surgical History No pertinent past surgical history Family History Family History Mother Lung cancer Father Lung cancer Social History Social History Social History: The patient is and lives with his . He states that she is the durable power human resource assistant as well as the 2 children that they have. The patient now needs to be a full code. 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 He is a lifelong nonsmoker. He does not use any alcohol. He said the last time he drank anything was wine about 3 months ago. No marijuana or illicit drugs. Smoking status: Never smoker Alcohol intake: former Substance use: never Substance use type: does not use Gender identity (if verbalized by the patient): Male Spiritual care concerns: No Exam Const: General: healthy appearing and no acute distress Nutritional Appearance: well nourished and obese centrally obese Orientation/consciousness: patient oriented x3 HENMT: Head: normal to inspection Ears: external ears normal Face and sinus: normal facial exam Mouth: Yes moist mucous membranes Eyes: Conjunctivae: conjunctivae normal Pupils: Equal, round and reactive pupils present EOM: EOMs intact bilaterally Neck: Neck: normal visual inspection Resp: Effort & Inspection: normal respiratory effort Auscultation: clear to auscultation bilaterally Cardio: Rate: regular rate Rhythm: regular rhythm GI: GI Palp: Yes Soft to palpation and No Tenderness to palpation present (GI) Auscultation: normal bowel sounds : Male General Exam: Yes normal external exam Back/Spine/Pelvis: Cervical Spine: cervical ROM normal Thoracic/Lumbar Spine: thoraco-lumbar ROM normal Skin: General skin exam: erythema ( Face appears flushed) Rashes: no rashes Neuro: General: patient oriented x3, moves all extremities and no focal motor deficits Speech: normal speech Gait exam (Neuro): Normal gait present Extrem: General: normal to inspection and no clubbing, cyanosis or edema Psych: Appearance: grossly normal and
[2020-08-01] MEDS: methylPREDNISolone SOD SUCC 40 MG VIAL 100 MG IV PUSH (17:07)
--- NOTE | 2020-08-01 17:12 | PC.NURSE ---
spoke to [facility], accepted by Dr Bose, no beds currently. ER doctor wants patient to stay in ER until a bed
--- NOTE | 2020-08-01 17:28 | PC.NURSE ---
platelets enroute from [facility]
[2020-08-01] MEDS: SODIUM CHLORIDE 0.9% IV 250 ML 30 ML IV CONT (19:20)
--- NOTE | 2020-08-01 19:28 | PC.NURSE ---
spoke to bed coordination at [facility]. no beds til late tomorrow. notified. Patient tolerating Platlets well
--- NOTE | 2020-08-01 20:25 | PC.NURSE ---
report to MIMA Mason collected, prepare for transfer when bed ready at [facility]
--- NOTE | 2020-08-01 20:45 | PC.NURSE ---
Patient admitted as ER Hold while waiting for a bed @ [facility]. Patient alert and oriented. Independent with ambulance with no assistive device and has steady gait. Denies pain/complaints/needs. Saline lock to RAC. Call light in reach.
--- NOTE | 2020-08-01 22:30 | PC.NURSE ---
Patient appears to be sleeping by the rise and fall of his chest. CPAP on. No distress noted. Call light in reach.
[2020-08-02] VITALS: BP 120/71; PULSE 76; RESP 18; TEMP 36.5; O2SAT 96
--- NOTE | 2020-08-02 | PC.NURSE ---
Patient awakened easily for VS to be taken. CPAP on. No distress noted. Call light in reach.
--- NOTE | 2020-08-02 02:00 | PC.NURSE ---
Patient appears to be sleeping by the rise and fall of his chest. CPAP on. No distress noted. Call light in reach.
[2020-08-02 04:00] VITALS: BP 128/79; PULSE 74; RESP 18; TEMP 36.6; O2SAT 97
--- NOTE | 2020-08-02 04:00 | PC.NURSE ---
Patient awakened easily for VS to be taken. CPAP on. No distress noted. Call light in reach.
--- NOTE | 2020-08-02 05:10 | PC.NURSE ---
Patient lying in bed awake with CPAP still on and says he gets up about 4:30 every morning for 30 years now. Denies pain/complaints/needs @ this time. No distress noted. Call light in reach.
[2020-08-02 08:00] VITALS: BP 125/76; PULSE 76; RESP 16; TEMP 36.3; O2SAT 94
--- NOTE | 2020-08-02 11:21 | PC.NURSE ---
Patient is still waiting for a room at [facility]. Reporting no pain, and no other needs at this time.
--- NOTE | 2020-08-02 12:15 | PC.NURSE ---
Patient is concerned because he is still [facility] bed [facility]
[2020-08-02 13:35] VITALS: BP 145/83; PULSE 89; RESP 18; TEMP 37.2; O2SAT 98
--- NOTE | 2020-08-02 13:40 | PC.NURSE ---
pt reports he is concerned about not having any of his medications today, pt had approx 25ml of blood in his urinal, states he feels like he needs to go more, nurse discharge notified, will call
--- NOTE | 2020-08-02 13:46 | PC.NURSE ---
Dr Heath called and report given, stated he will put orders in
--- NOTE | 2020-08-02 14:20 | PHAR ---
08/02/20 14:20 - SPOKE W/RIKA EPSTEIN AT [facility]. PT HAS NOT FILLED METRONIDAZOLE 0.75% GEL SINCE 2015, HAS NOT FILLED DESONIDE CREAM SINCE . NURSE NOAH REMOVING FROM HOME MED PROFILE AND SEEING IF PT CAN BRING TOPICAL BROMINIDINE GEL FROM HOME (PHARMACY DOES NOT SUPPLY). TLS
[2020-08-02] MEDS: SODIUM CHLORIDE 0.9% IV 1,000 ML 100 ML IV CONT (14:34)
--- NOTE | 2020-08-02 14:36 | PC.NURSE ---
[facility] one call contacted, no bed at this time, updated on blood in urine, vitals and increase in pain, states will contact specialist with update
--- NOTE | 2020-08-02 14:51 | PC.NURSE ---
Patient is reporting increasing pain and difficulty with passing stool. Started IV fluids.
--- NOTE | 2020-08-02 15:13 | PC.NURSE ---
Completed bedside change of shift report, with patient in room. Patient has called nurse from [facility] to help with placement.
--- NOTE | 2020-08-02 15:21 | PC.NURSE ---
MD notified that patient requested to take his Entecavir and Promacta that he had brought with him. MD notified and stated that it was fine for him to take his home meds. Patient notified.
--- NOTE | 2020-08-02 15:51 | PC.NURSE ---
Patient notified that [facility] called and stated they have a room available. They stated it is currently being cleaned and then will let us know.
[2020-08-02 17:08] LABS: Hematocrit 35.1 % (40.0-54.0); Hemoglobin 11.5 g/dL (14.0-18.0); Mean Corpuscular HGB Conc 32.8 g/dL (32.0-36.0); Mean Corpuscular Hemoglobin 28.5 pg (27.0-31.0); Mean Corpuscular Volume 86.9 fL (78.0-102.0); Red Blood Count 4.04 M/mm3 (4.70-6.10); Red Cell Distribution Width 14.1 % (11.6-14.4); White Blood Count 9.5 K/mm3 (4.8-10.8)
[2020-08-02] MEDS: MORPHINE SULFATE (*CRX) 4 MG/ML INJ IV PUSH (17:09)
[2020-08-02 17:12] LABS: Platelet Count Result 0 K/mm3 (150-420)
[2020-08-02 17:15] VITALS: BP 147/85; PULSE 98; RESP 22; TEMP 37.4; O2SAT 97
--- NOTE | 2020-08-02 17:27 | PC.NURSE ---
MD notified that patient's current PLT count is 0. Updated on bleeding from nose and with urination. MD stated to keep patient on bedrest.
--- NOTE | 2020-08-02 17:38 | PC.NURSE ---
pt c/o frequent urination, states everytime he sits down he feels the urge to void, pt is offered catheter placement per dr heller but declines at this time, pt given morphine for flank pain, awaiting call back from [facility] to give report
--- NOTE | 2020-08-02 17:52 | PC.NURSE ---
[facility] has called to say pt does have a bed but it is still occupied and is being discharged tonight, room will still need to be cleaned, [facility] nurse reports it may take awhile still
--- NOTE | 2020-08-02 19:51 | PC.NURSE ---
albino called for report, agusto took report, collin cristobal called for transport, notified
[2020-08-02 20:59] VITALS: BP 147/85; PULSE 98; RESP 22; TEMP 37.4; O2SAT 97
--- NOTE | 2020-09-23 20:45 | PC.NURSE ---
late entry: 08/01/2020 1728 consent for platlets obtained.
== END 2020-08-02 20:25 | disposition short-term general hospital (02) ==
LOC: CHSED 16:19 → CHS2ND 20:23
PROVIDERS: Emergency Medicine; Emergency Provider Emergency Medicine; PCP Internal Medicine
DX: D69.3 Immune thrombocytopenic purpura (principal)
CPT/HCPCS: 36415; 36430; 85027; 85055; 86900; 86901; J2270; J2920; J7030; J7050; P9034

== ENCOUNTER 2020-09-16 14:26 | Emergency (ER) | payer BC, SELFPAY ==
--- NOTE | ~2020-09-16 | CT_ITS ---
EXAMINATION:CT diagnostic chest wo con DATE: 09/16/2020 16:00 INDICATION: Fever and shortness of breath. TECHNIQUE: Computed tomography (CT) of the chest was performed without intravenous contrast. Automate d exposure control and iterative reconstruction technique were employed. The dose-length product (DLP ) was 642.96 mGy-cm. COMPARISON: Chest CT 04/10/2020 FINDINGS: The lungs demonstrate mild atelectasis. Calcified left lung nodules are consistent with old granulomatous disease. No pleural effusion. The heart size is normal. No pericardial effusion. There is splenomegaly measuring 20.3 cm. At T8-T9, there is a 2.3 x 0.8 x 1.0 cm calcified intradural extr a medullary mass anteriorly with moderate central canal stenosis. There is mild thoracic spondylosis. IMPRESSION: 1. Stable severe splenomegaly. 2. 2.3 cm calcified intradural extra medullary mass at T8-T9 with moderate central canal stenosis, co nsistent with meningioma versus calcified sequestered disc. Reviewed, dictated and finalized at location A. IMPRESSION: 1. Stable severe splenomegaly. 2. 2.3 cm calcified intradural extra medullary mass at T8-T9 with moderate cent ral canal stenosis, consistent with meningioma versus calcified sequestered dis c.
[2020-09-16 14:58] VITALS: BP 117/81; PULSE 130; RESP 18; TEMP 37.3; O2SAT 94
--- NOTE | 2020-09-16 15:18 | ECG_ITS ---
Measurements Intervals [place] Rate: 128 P: 48 AK: 150 QRS: 14 QRSD: 91 T: 33 QT: 292 QTc: 426 Interpretive Statements SINUS TACHYCARDIA DELAYED PRECORDIAL R/S TRANSITION BASELINE ARTIFACT- II, III, AVF ABNORMAL ECG Electronically Signed On 09-16-2020 15:36:48 CDT by Odell Newton D.O.
[2020-09-16 15:52] LABS: Base Excess ABG 1.8 mmol/L (0-2); HCO3 ABG 24.3 mmol/L (23-29); Oxygen Content ABG 13.7 %vol (16.0-22.0); Oxygen Saturation ABG 94.8 % (95-97); Oxyhemoglobin 94.2 % (94-100); PCO2 ABG 30.9 mmHg (35-45); Total Hemoglobin 10.3 g/dL (12.0-18.0); pH ABG 7.51 (7.35-7.45)
[2020-09-16 15:55] LABS: Device ROOM AIR; Hematocrit 30.6 % (40.0-54.0); Hemoglobin 9.5 g/dL (14.0-18.0); Mean Corpuscular Hemoglobin 28.4 pg (27.0-31.0); Mean Corpuscular Volume 91.6 fL (78.0-102.0); Mean Platelet Volume 10.3 fl (8.7-11.0); Modified Allen's Test Pass; Platelet Count Result 135 K/mm3 (150-420); Red Blood Count 3.34 M/mm3 (4.70-6.10); Red Cell Distribution Width 17.7 % (11.6-14.4); Site Drawn RIGHT RADIAL; White Blood Count 5.7 K/mm3 (4.8-10.8)
[2020-09-16 16:02] LABS: Appearance Urine Clear (Clear); Bilirubin Urine 2+ (Negative); Glucose Urine UA Negative (Negative); Ketones Urine Trace (Negative); Leukocyte Esterase Ur Negative (Negative); Nitrate Urine Negative (Negative); Protein Urine 2+ (Negative); Specific Grav Ur 1.025 (1.010-1.020); pH Urine 5.5 (5.0-8.0)
[2020-09-16] MEDS: SODIUM CHLORIDE 0.9% IV 1,000 ML 999 ML IV CONT (16:08)
[2020-09-16 16:09] LABS: Add Urine Microscopic? YES; Bacteria Urine 1+ /hpf; Blood Urine Trace-Intact (Negative); Color Urine Dark Orange (Yellow); RBC Urine 0-2 /hpf (0-2); Squamous Epithelial Cell Urine Few /hpf (Few); WBC Urine None seen /hpf (0-3)
[2020-09-16 16:10] LABS: Amorphous Sediment Urine Moderate
[2020-09-16 16:11] LABS: Alanine Aminotransferase 34 U/L (16-63); Albumin Level 2.8 g/dL (3.4-5.0); Alkaline Phosphatase 69 U/L (46-116); Anion Gap 13 mmol/L (8-16); Aspartate Amino Transferase 36 U/L (15-37); Blood Urea Nitrogen 24 mg/dL (7-18); Calcium 8.4 mg/dL (8.5-10.1); Carbon Dioxide 25 mmol/L (21-32); Chloride 103 mmol/L (98-108); Estimated CRCL calculation 69 ml/min; Estimated Glomerular Filt Rate 60; Glucose 123 mg/dL (70-99); Lactic Acid Reflex 1.4 mmol/L (0.4-2.0); Osmolality Calculated 297 mOsm/kg (285-295); Sodium 141 mmol/L (136-145); Total Protein 6.2 g/dL (6.4-8.2); Troponin I 7.2 ng/L (0.00-60.4)
[2020-09-16 16:25] LABS: Band Neutrophils Percent 3 % (0-6); Neutrophils Absolute Manual 3.93 K/mm3 (1.3-6.7); Neutrophils Percent Manual 66 % (46-73); Total Cells Counted 100
[2020-09-16 16:26] LABS: Basophils Absolute Manual 0.28 K/mm3 (0-0.1); Basophils Percent Manual 5 % (0-1); Eosinophils Percent Manual 0 % (1-6); Lymphocytes Absolute Manual 1.02 K/mm3 (1.1-4.5); Lymphocytes Percent Manual 18 % (18-44); Monocytes Absolute Manual 0.45 K/mm3 (0.1-0.90); Monocytes Percent Manual 8 % (3-9); Platelet Estimate Adequate (Adequate)
[2020-09-16 16:44] LABS: SARS-CoV-2 Ag Negative (Negative)
[2020-09-16 16:54] VITALS: BP 137/72; PULSE 128; RESP 18; TEMP 38.7; O2SAT 95
[2020-09-16] MEDS: ACETAMINOPHEN 325 MG TABLET 650 MG PO (17:15)
[2020-09-16] MEDS: IBUPROFEN 400 MG TABLET 800 MG PO (17:15)
[2020-09-16 17:45] VITALS: TEMP 38.3
--- NOTE | 2020-09-16 18:17 | ED.WEAKNESS ---
HPI - Weakness General Chief complaint: Weakness Stated complaint: possible uti/SOB Time Seen by Provider: 09/16/20 14:59 Source: patient and RN notes reviewed Mode of arrival: wheelchair Limitations: no limitations History of Present Illness MD Complaint: generalized weakness and lack of energy Onset (ago): day(s) (3) Duration: constant Location: generalized and other (also mild hand tremors.) Migration: none Severity scale (1-10): 5 Quality: dull Relieving factors: none Exacerbating factors: none Associated symptoms: dysuria, fever/chills and nausea/vomiting Related Data Home Medications Medication Instructions Recorded Confirmed Mirvaso 1 applic TOPICAL DAILY 04/10/20 09/16/20 doxycycline hyclate 100 mg PO DAILY 04/10/20 09/16/20 azithromycin 250 mg PO DAILY 09/16/20 09/16/20 benzonatate 200 mg PO TID PRN 09/16/20 09/16/20 dexamethasone 6 mg PO DAILY 09/16/20 09/16/20 entecavir 0.5 mg PO DAILY 09/16/20 09/16/20 fluconazole 200 mg PO DAILY 09/16/20 09/16/20 morphine 15 mg PO BID PRN 09/16/20 09/16/20 pantoprazole 40 mg PO DAILY 09/16/20 09/16/20 prednisone 30 mg PO DAILY 09/16/20 09/16/20 spironolacton-hydrochlorothiaz 1 tablet PO DAILY 09/16/20 09/16/20 Allergies Allergy/AdvReac Type Severity Reaction Status Date / Time No Known Allergies Allergy Verified 04/10/20 14:36 Review of Systems Review of Systems: All systems reviewed & are unremarkable except as noted in HPI and below Constitutional: Constitutional: Reports as per HPI and Reports no additional constitutional complaints Eyes: Eyes: Reports as per HPI and Reports no additional eye complaints ENT: Reports system reviewed and no additional complaints, except as documented and Reports as per HPI Cardiovascular: Cardiovascular: Reports as per HPI and Reports no additional cardiovascular complaints Respiratory: Respiratory: Reports as per HPI and Reports no additional respiratory complaints Gastrointestinal: Gastrointestinal: Reports as per HPI and Reports no additional gastrointestinal complaints Genitourinary: Genitourinary: Reports no additional male genitourinary complaints and Reports as per HPI Musculoskeletal: Musculoskeletal: Reports no additional musculoskeletal complaints and Reports as per HPI Integumentary/Breasts: Skin/Breast: Reports system reviewed and no additional complaints, except as docu and Reports as per HPI Neurologic: Reports system reviewed and no additional complaints, except as documented and Reports as per HPI Psychiatric: Psychiatric: Reports no additional psychiatric complaints and Reports as per HPI Endocrine: Endocrine: Reports no additional endocrine complaints and Reports as per HPI Hematologic/Lymphatic: Hematologic/Lymphatic: Reports no additional hematologic/lymphatic complaints and Reports as per HPI Allergic/Immunologic: Allergic/Immunologic: Reports no additional allergic/immunologic complaints and Reports as per HPI PMFSH Past Medical History Medical History History of ITP HTN (hypertension) Rosacea Surgical History Surgical History No pertinent past surgical history Family History Family History Mother Lung cancer Father Lung cancer Social History Social History Social History: The patient is and lives with his . He states that she is the durable power bankruptcy attorney as well as the 2 children that they have. The patient now needs to be a full code. 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 He is a lifelong nonsmoker. He does not use any alcohol. He said the last time he drank anything was wine about 3 months ago. No marijuana or illicit drugs. Smoking status: Never smoker Alcohol intake: former Substance use: never Substa
[2020-09-16] MEDS: methylPREDNISolone SOD SUCC 125 MG VIAL IV PUSH (18:28)
[2020-09-16] MEDS: ALBUTEROL SULFATE (*SP) INHALER 2 PUFF INHALATION (18:29)
[2020-09-16 18:30] VITALS: PULSE 124; RESP 18; O2SAT 95
[2020-09-16 18:34] VITALS: PULSE 124; RESP 18; O2SAT 96
[2020-09-16 18:41] VITALS: BP 133/76; PULSE 112; RESP 18; TEMP 37.3; O2SAT 95
== END 2020-09-16 19:02 | disposition home or self-care (01) ==
PROVIDERS: Emergency Provider Emergency Medicine; PCP Internal Medicine
DX: N39.0 Urinary tract infection, site not specified (principal); J40 Bronchitis, not specified as acute or chronic; Z20.822 Contact with and (suspected) exposure to COVID-19
CPT/HCPCS: 36415; 36600; 71250; 80053; 81001; 82805; 83605; 84145; 84484; 85025; 87040; 87426; 93005; 94640; 96361; 96365; 96375; 99283; 99284; A9270; C9803; J0696; J2930; J7030

== ENCOUNTER 2020-10-21 08:47 | Outpatient (RCR) | payer BC, SELFPAY ==
[2020-10-20 13:39] LABS: Immature Platelet Fraction Pct 8.4 % (1.0-7.0); Mean Platelet Volume 11.7 fl (8.7-11.0)
[2020-10-20 13:41] LABS: Platelet Count Result 25 K/mm3 (150-420)
[2020-10-21 09:10] VITALS: BP 123/74; PULSE 118; RESP 16; TEMP 36.6; O2SAT 98
[2020-10-21 09:21] VITALS: BMI 30.9
[2020-10-21 09:28] VITALS: BP 130/72; PULSE 112; RESP 16; TEMP 37.2; O2SAT 96
[2020-10-21 10:12] VITALS: BP 130/69; PULSE 120; RESP 16; TEMP 37.3; O2SAT 96
--- NOTE | 2020-10-21 10:18 | PC.NURSE ---
Patient here for 1 unit of Platelets r/t platelet count of 25. Patient has weakness and some shortness of breath which is common for him he reports with his illness. Just had blood and platelet transfusion last week at [facility]. No concerns and is aware of s/sx of blood transfusion reaction and when to get help. 1 unit of Platelets administered. Tolerated well. Lab came came to draw post platelet count per protocol. Safe exit of hospital.
[2020-10-21 10:40] LABS: Immature Platelet Fraction Pct 7.5 % (1.0-7.0); Mean Platelet Volume 11.3 fl (8.7-11.0); Platelet Count Result 26 K/mm3 (150-420)
== END 2021-01-18 23:59 | disposition home or self-care (01) ==
LOC: CHSTREATRM 08:47
PROVIDERS: PCP Internal Medicine
DX: D69.59 Other secondary thrombocytopenia (principal); D75.81 Myelofibrosis
CPT/HCPCS: 36415; 36430; 85049; 85055; 86900; 86901; J7050; P9034

== ENCOUNTER 2020-11-05 09:35 | Outpatient (RCR) | payer BC, SELFPAY ==
[2020-11-04 10:15] LABS: Hematocrit 27.3 % (40.0-54.0); Mean Platelet Volume 13.9 fl (8.7-11.0)
[2020-11-04 10:20] LABS: Platelet Count Result 11 K/mm3 (150-420)
[2020-11-05] MEDS: diphenhydrAMINE HCl CAP 25 MG CAPSULE PO (10:34)
[2020-11-05] MEDS: ACETAMINOPHEN 325 MG TABLET 650 MG PO (10:34)
[2020-11-05 10:56] VITALS: BP 117/60; PULSE 125; RESP 18; TEMP 37.3; O2SAT 94
[2020-11-05 11:45] VITALS: BP 110/56; PULSE 113; RESP 18; TEMP 37.1; TEMP 37.2; O2SAT 94
[2020-11-05 12:29] VITALS: BP 119/66; PULSE 108; RESP 16; TEMP 36.6; O2SAT 97
[2020-11-05 12:45] VITALS: BP 110/58; PULSE 103; RESP 18; TEMP 36.3; O2SAT 97
[2020-11-05 13:45] VITALS: BP 109/58; PULSE 106; RESP 18; TEMP 36.3; O2SAT 97
[2020-11-05 14:45] VITALS: BP 104/59; PULSE 98; RESP 18; TEMP 36.3; O2SAT 98
[2020-11-05 15:22] LABS: Hematocrit 23.4 % (40.0-54.0); Mean Platelet Volume 11.1 fl (8.7-11.0)
[2020-11-05 15:26] LABS: Platelet Count Result 15 K/mm3 (150-420)
--- NOTE | 2020-11-05 15:30 | PC.NURSE ---
Transfusion completed, IV site discontinued. Patient taken by wheelchair out of building.
== END 2021-02-02 23:59 | disposition home or self-care (01) ==
LOC: CHSTREATRM 09:35
PROVIDERS: PCP Internal Medicine
DX: D69.3 Immune thrombocytopenic purpura (principal)
CPT/HCPCS: 36415; 36430; 85014; 85018; 85049; 85055; 86850; 86900; 86901; 86920; A9270; P9016; P9034

== ENCOUNTER 2020-11-30 07:09 | Outpatient (CLI) | payer BC, SELFPAY ==
--- NOTE | ~2020-11-30 | XR_ITS ---
EXAMINATION: XR chest 2V 11/30/2020 07:30 INDICATION: Shortness of breath PROCEDURE: 2 view chest COMPARISON: 04/10/2020 FINDINGS: The lungs are clear. The cardiomediastinal silhouette is within normal limits. There are no pleural effusions. There is no pneumothorax suspected. IMPRESSION: 1: NO ACUTE CARDIOPULMONARY DISEASE. Reviewed, dictated and finalized at location B.
== END 2020-11-30 07:10 | disposition home or self-care (01) ==
LOC: CHSLAB 07:13
PROVIDERS: PCP Internal Medicine
DX: R06.02 Shortness of breath (principal)
CPT/HCPCS: 71046

== ENCOUNTER 2020-12-02 08:27 | Outpatient (CLI) | payer BC, SELFPAY ==
--- NOTE | ~2020-12-02 | CT_ITS ---
EXAMINATION: CTA chest PE protocol DATE: 12/02/2020 09:33 INDICATION: Increasing shortness of breath. TECHNIQUE: Computed tomography (CT) pulmonary angiogram of the chest was performed with 100 mL Omnipa que-350 intravenous contrast. Additional 3D reconstructions utilizing coronal maximum intensity proje ction (MIP) were performed. The dose-length product was 755.03 mGy-cm. COMPARISON: None FINDINGS: Excellent contrast opacification of the pulmonary arteries. There is mild streak artifact from dense contrast in the superior vena cava and right atrium. Mild scattered respiratory motion artifact. Toge ther this mildly decreases sensitivity in some of the smaller subsegmental pulmonary arteries. No pul monary embolism. No pneumonia, pulmonary edema or other pulmonary infiltrates. No pleural effusion or pneumothorax. Borderline heart size. No pericardial effusion. Thoracic aorta is normal in caliber wi th no dissection. No pathologically enlarged thoracic lymphadenopathy. Again seen is splenomegaly wit h the incompletely visualized spleen measuring 20.3 cm in maximal AP diameter. Unchanged 2.3 x 0.8 x 1.0 cm calcified intradural extramedullary mass in the anterior central canal at the level of T8-T9 r esulting in moderate central canal stenosis. IMPRESSION: 1. No pulmonary embolism or other acute cardiopulmonary disease. 2. Unchanged marked splenomegaly. 3. Borderline heart size. 4. Unchanged 2.3 cm calcified intradural extramedullary mass at T8-T9 most likely either a meningioma or calcified sequestered disc fragment which results in moderate central canal stenosis. Reviewed, dictated and finalized at location A. IMPRESSION: 1. No pulmonary embolism or other acute cardiopulmonary disease. 2. Unchanged marked splenomegaly. 3. Borderline heart size. 4. Unchanged 2.3 cm calcified intradural extramedullary mass at T8-T9 most like ly either a meningioma or calcified sequestered disc fragment which results in moderate central canal stenosis.
[2020-12-02 08:46] LABS: Estimated Glomerular Filt Rate > 60
== END 2020-12-02 08:28 | disposition home or self-care (01) ==
LOC: CHSIMG 08:28
PROVIDERS: PCP Internal Medicine
DX: R06.02 Shortness of breath (principal); D75.81 Myelofibrosis
CPT/HCPCS: 71275; Q9967

== ENCOUNTER 2020-12-10 09:50 | Outpatient (CLI) | payer BC, SELFPAY ==
[2020-12-10 11:06] LABS: Immature Platelet Fraction Pct 4.7 % (1.0-7.0)
[2020-12-10 11:07] LABS: Platelet Count Result 10 K/mm3 (150-420)
[2020-12-10 11:18] VITALS: BP 126/84; PULSE 114; RESP 20; TEMP 38; O2SAT 95
[2020-12-10 11:35] VITALS: BP 116/84; PULSE 114; RESP 22; TEMP 37.6; O2SAT 95
[2020-12-10 12:00] VITALS: BP 114/84; PULSE 120; RESP 22; TEMP 37.4; O2SAT 94
[2020-12-10 12:35] VITALS: BP 120/82; PULSE 118; RESP 20; TEMP 38.1; O2SAT 95
[2020-12-10 12:41] LABS: Immature Platelet Fraction Pct 2.5 % (1.0-7.0); Mean Platelet Volume 9.1 fl (8.7-11.0)
[2020-12-10 12:47] LABS: Platelet Count Result 23 K/mm3 (150-420)
== END 2020-12-10 09:51 | disposition home or self-care (01) ==
LOC: CHSLAB 09:54 → CHSTREATRM 10:00
PROVIDERS: PCP Internal Medicine
DX: D69.3 Immune thrombocytopenic purpura (principal); D75.81 Myelofibrosis
CPT/HCPCS: 36415; 36430; 85049; 85055; 86900; 86901; J7050; P9034

== ENCOUNTER 2020-12-17 09:44 | Outpatient (CLI) | payer BC, SELFPAY ==
--- NOTE | 2020-12-17 10:10 | PC.NURSE ---
Patient here for platelet transfusion. Tolerated IV start well, pre-infusion CBC drawn. Sitting up in recliner resting. Call light at side. Provided with soda per request.
[2020-12-17 10:22] LABS: Hemoglobin 8.3 g/dL (14.0-18.0); Immature Platelet Fraction Pct 4.5 % (1.0-7.0); Mean Corpuscular HGB Conc 31.9 g/dL (32.0-36.0); Mean Corpuscular Hemoglobin 29.4 pg (27.0-31.0); Mean Corpuscular Volume 92.2 fL (78.0-102.0); Red Blood Count 2.82 M/mm3 (4.70-6.10); Red Cell Distribution Width 18.1 % (11.6-14.4); White Blood Count 4.2 K/mm3 (4.8-10.8)
[2020-12-17 10:24] LABS: Platelet Count Result 9 K/mm3 (150-420)
[2020-12-17 10:40] VITALS: BP 134/65; PULSE 104; RESP 18; TEMP 36.2; O2SAT 99
[2020-12-17] MEDS: SODIUM CHLORIDE 0.9% IV 250 ML 30 ML IV CONT (10:40)
--- NOTE | 2020-12-17 11:28 | PC.NURSE ---
infusion complete, tolerated well
[2020-12-17 11:29] VITALS: BP 112/64; PULSE 90; RESP 18; TEMP 35.5; O2SAT 99
--- NOTE | 2020-12-17 11:55 | PC.NURSE ---
Patient here for platelets infusion. Patient tolerated well. Vital signs stable per flow chart. Post CBC drawn, IV site discontinued. Dressing applied to site. Patient tolerated well. This nurse will call patient back at [phone] with post infusion platelet result. Patient discharged home ambulatory.
[2020-12-17 12:13] LABS: Immature Platelet Fraction Pct 3.4 % (1.0-7.0)
[2020-12-17 12:15] LABS: Platelet Count Result 12 K/mm3 (150-420)
--- NOTE | 2020-12-17 12:17 | PC.NURSE ---
Patient called and updated with post platelet count. Pt. states understanding.
== END 2020-12-17 09:45 | disposition home or self-care (01) ==
LOC: CHSLAB 09:48 → CHSTREATRM 09:52
PROVIDERS: PCP Internal Medicine
DX: D47.1 Chronic myeloproliferative disease (principal)
CPT/HCPCS: 36415; 36430; 85027; 85049; 85055; 86900; 86901; J7050; P9034

== ENCOUNTER 2020-12-24 10:16 | Outpatient (RCR) | payer BC, SELFPAY ==
[2020-12-23 07:46] LABS: Hematocrit 24.8 % (40.0-54.0); Hemoglobin 7.9 g/dL (14.0-18.0); Immature Platelet Fraction Pct 7.6 % (1.0-7.0); Mean Corpuscular HGB Conc 31.9 g/dL (32.0-36.0); Mean Corpuscular Hemoglobin 29.8 pg (27.0-31.0); Mean Corpuscular Volume 93.6 fL (78.0-102.0); Red Blood Count 2.65 M/mm3 (4.70-6.10); Red Cell Distribution Width 18.3 % (11.6-14.4); White Blood Count 6.2 K/mm3 (4.8-10.8)
[2020-12-23 08:00] VITALS: BP 113/70; PULSE 115; RESP 18; TEMP 36.3; O2SAT 97
[2020-12-23 08:33] LABS: Platelet Count Result 5 K/mm3 (150-420)
--- NOTE | 2020-12-23 08:35 | PC.NURSE ---
Patient here to have infusion of platelets. Tolerated IV start well. Resting in recliner with BLE elevated. Call light and diet white soda provided.
[2020-12-23 08:55] VITALS: BP 113/78; PULSE 115; RESP 18; TEMP 36.3; O2SAT 97
[2020-12-23] MEDS: SODIUM CHLORIDE 0.9% IV 100 ML 10 ML IVPB (08:58)
[2020-12-23 09:04] LABS: Band Neutrophils Percent 0 % (0-6); Lymphocytes Absolute Manual 5.27 K/mm3 (1.1-4.5); Lymphocytes Percent Manual 85 % (18-44); Monocytes Absolute Manual 0.68 K/mm3 (0.1-0.90); Monocytes Percent Manual 11 % (3-9); Neutrophils Absolute Manual 0.18 K/mm3 (1.3-6.7); Neutrophils Percent Manual 3 % (46-73); Total Cells Counted 100
[2020-12-23 09:05] LABS: Basophils Percent Manual 0 % (0-1); Eosinophils Absolute Manual 0.06 K/mm3 (0.02-0.5); Eosinophils Percent Manual 1 % (1-6); Platelet Estimate Decreased (Adequate)
--- NOTE | 2020-12-23 10:00 | PC.NURSE ---
Patient tolerated transfusion well. Blood drawn for post platelet level. IV site removed, tip intact. dressing applied to site. Patient left ambulatory. This nurse will call patient with post platelet level.
[2020-12-23 10:50] LABS: Immature Platelet Fraction Pct 3.6 % (1.0-7.0)
[2020-12-23 10:53] LABS: Platelet Count Result 11 K/mm3 (150-420)
--- NOTE | 2020-12-23 11:00 | PC.NURSE ---
Patient called per request with post lab level. Patient is to come in again tomorrow for second unit of platelets. Patient will come in at 1030 to 1100.
[2020-12-24 11:05] VITALS: BP 118/68; PULSE 132; RESP 20; TEMP 37.4; O2SAT 97
[2020-12-24 11:34] VITALS: BP 116/72; PULSE 124; RESP 18; TEMP 37.2; O2SAT 97
[2020-12-24 12:02] VITALS: BP 116/78; PULSE 122; RESP 20; TEMP 37.1; O2SAT 97
[2020-12-24 12:26] LABS: Immature Platelet Fraction Pct 3.5 % (1.0-7.0)
[2020-12-24 12:28] LABS: Platelet Count Result 9 K/mm3 (150-420)
== END 2021-03-23 23:59 | disposition home or self-care (01) ==
LOC: CHSTREATRM 10:16
PROVIDERS: PCP Internal Medicine
DX: D47.1 Chronic myeloproliferative disease (principal)
CPT/HCPCS: 36415; 36430; 85025; 85049; 85055; 86900; 86901; J7050; P9034

== ENCOUNTER 2020-12-28 09:16 | Outpatient (CLI) | payer BC, SELFPAY ==
[2020-12-28 09:33] LABS: Hemoglobin 7.6 g/dL (14.0-18.0); Mean Corpuscular HGB Conc 31.7 g/dL (32.0-36.0); Mean Corpuscular Hemoglobin 29.7 pg (27.0-31.0); Mean Corpuscular Volume 93.8 fL (78.0-102.0); Red Blood Count 2.56 M/mm3 (4.70-6.10); Red Cell Distribution Width 17.6 % (11.6-14.4); White Blood Count 6.1 K/mm3 (4.8-10.8)
--- NOTE | 2020-12-28 10:00 | PC.NURSE ---
PT to OP infusion center for IV bolus and platelet infusion. PT complains of spleen pain and fever. Pt is flushed and diaphoretic. Oriented to room. Call riggins in reach. Reminded to call with needs.
[2020-12-28 10:06] LABS: Platelet Count Result 4 K/mm3 (150-420)
[2020-12-28] MEDS: SODIUM CHLORIDE 0.9% IV 500 ML 30 ML IVPB (10:07)
[2020-12-28 10:08] VITALS: TEMP 38.2
[2020-12-28] MEDS: ACETAMINOPHEN 325 MG TABLET 650 MG PO (10:08)
[2020-12-28 10:10] VITALS: BP 112/65; PULSE 152; RESP 20; TEMP 38.2; O2SAT 97
[2020-12-28] MEDS: SODIUM CHLORIDE 0.9% IV 250 ML 30 ML IVPB (10:45)
[2020-12-28 10:49] VITALS: BP 106/58; PULSE 124; RESP 16; TEMP 37; O2SAT 95
[2020-12-28 10:57] VITALS: BP 99/56; PULSE 120; RESP 18; TEMP 37.4; O2SAT 95
--- NOTE | 2020-12-28 11:14 | PC.NURSE ---
Pt discharged to personal vehicle per . Pt continues to have same complaints as he did on arrival.
[2020-12-28 14:35] VITALS: TEMP 37.2
== END 2020-12-28 09:17 | disposition home or self-care (01) ==
LOC: CHSTREATRM 09:19
PROVIDERS: PCP Internal Medicine
DX: D47.1 Chronic myeloproliferative disease (principal)
CPT/HCPCS: 36415; 36430; 85027; 85055; 86900; 86901; 96360; A9270; J7040; J7050; P9034

== ENCOUNTER 2021-01-04 13:28 | Outpatient (CLI) | payer BC, SELFPAY ==
[2021-01-04 13:50] LABS: Hematocrit 23.8 % (40.0-54.0); Hemoglobin 7.5 g/dL (14.0-18.0); Immature Platelet Fraction Pct 13.8 % (1.0-7.0); Mean Corpuscular HGB Conc 31.5 g/dL (32.0-36.0); Mean Corpuscular Volume 95.2 fL (78.0-102.0); Red Cell Distribution Width 18.2 % (11.6-14.4); White Blood Count 10.5 K/mm3 (4.8-10.8)
[2021-01-04 13:52] VITALS: BP 115/74; PULSE 116; RESP 16; TEMP 36.6; O2SAT 99
[2021-01-04] MEDS: SODIUM CHLORIDE 0.9% IV 250 ML 10 ML IVPB (13:52)
[2021-01-04 13:53] VITALS: BMI 28.7
[2021-01-04 13:53] LABS: Platelet Count Result 2 K/mm3 (150-420)
[2021-01-04 14:02] VITALS: BP 115/74; PULSE 116; RESP 14; TEMP 36.3; O2SAT 100
[2021-01-04 14:18] VITALS: BP 116/70; PULSE 114; RESP 14; TEMP 36.6; O2SAT 100
[2021-01-04 15:18] VITALS: BP 110/63; PULSE 90; RESP 14; TEMP 36.3; O2SAT 98
--- NOTE | 2021-01-04 15:37 | PC.NURSE ---
Patient here for 1 unit Platelets. Plt count 2. 1 Unit of Platelets administered. Refer TAR. Tolerated well. Post platelet count drawn and is pending. Safe exit of hospital. Will return on Saturday01/06/21 for another unit of Platelets.
[2021-01-04 15:45] LABS: Immature Platelet Fraction Pct 2.6 % (1.0-7.0); Mean Platelet Volume 10.2 fl (8.7-11.0)
[2021-01-04 15:47] LABS: Platelet Count Result 10 K/mm3 (150-420)
== END 2021-01-04 13:29 | disposition home or self-care (01) ==
LOC: CHSTREATRM 13:33
PROVIDERS: PCP Internal Medicine
DX: D47.1 Chronic myeloproliferative disease (principal)
CPT/HCPCS: 36415; 36430; 85027; 85049; 85055; 86900; 86901; J7050; P9034

== ENCOUNTER 2021-01-07 09:18 | Outpatient (RCR) | payer BC, SELFPAY ==
[2021-01-06 09:42] LABS: Hematocrit 22.6 % (40.0-54.0); Mean Corpuscular Hemoglobin 29.9 pg (27.0-31.0); Mean Corpuscular Volume 96.6 fL (78.0-102.0); Red Blood Count 2.34 M/mm3 (4.70-6.10); Red Cell Distribution Width 18.1 % (11.6-14.4); White Blood Count 9.4 K/mm3 (4.8-10.8)
[2021-01-06 09:45] LABS: Platelet Count Result 0 K/mm3 (150-420)
[2021-01-06 10:01] VITALS: BP 116/60; PULSE 118; RESP 16; TEMP 36.5; O2SAT 97
[2021-01-06 10:07] VITALS: BMI 28.7
[2021-01-06 10:19] VITALS: BP 120/61; PULSE 118; RESP 14; TEMP 36.8; O2SAT 97
[2021-01-06 11:00] VITALS: BP 110/65; PULSE 116; RESP 14; TEMP 36.6; O2SAT 98
--- NOTE | 2021-01-06 11:02 | PC.NURSE ---
Patient here for Platelet transfusion. Platelet count 0. Will have 1 unit Platelets today that we have here. 2nd unit will be order and he will come back tomorrow, Sat for. 1 Unit of platelets transfused. SEE TAR. Tolerated well. No concerns voiced. Safe exit of hospital.
[2021-01-06 11:34] LABS: Band Neutrophils Percent 0 % (0-6); Lymphocytes Absolute Manual 9.02 K/mm3 (1.1-4.5); Lymphocytes Percent Manual 96 % (18-44); Monocytes Absolute Manual 0.18 K/mm3 (0.1-0.90); Monocytes Percent Manual 2 % (3-9); Neutrophils Absolute Manual 0.18 K/mm3 (1.3-6.7); Neutrophils Percent Manual 2 % (46-73); Total Cells Counted 100
[2021-01-06 11:35] LABS: Basophils Percent Manual 0 % (0-1); Eosinophils Percent Manual 0 % (1-6); Platelet Estimate Decreased (Adequate)
[2021-01-06 11:37] LABS: Platelet Count Result 9 K/mm3 (150-420)
[2021-01-07 10:10] LABS: Hematocrit 21.1 % (40.0-54.0); Immature Platelet Fraction Pct 8.8 % (1.0-7.0); Mean Corpuscular HGB Conc 30.8 g/dL (32.0-36.0); Mean Corpuscular Hemoglobin 29.8 pg (27.0-31.0); Mean Corpuscular Volume 96.8 fL (78.0-102.0); Red Blood Count 2.18 M/mm3 (4.70-6.10); Red Cell Distribution Width 17.9 % (11.6-14.4); White Blood Count 11.3 K/mm3 (4.8-10.8)
[2021-01-07 10:11] LABS: Hemoglobin 6.5 g/dL (14.0-18.0)
[2021-01-07 10:12] LABS: Platelet Count Result 1 K/mm3 (150-420)
[2021-01-07 10:16] VITALS: BP 116/74; PULSE 128; RESP 20; TEMP 36.9; O2SAT 97
[2021-01-07 10:41] VITALS: BP 106/54; PULSE 120; RESP 20; TEMP 36.6; O2SAT 94
[2021-01-07 11:41] VITALS: BP 120/64; PULSE 124; RESP 20; TEMP 36.6; O2SAT 93
--- NOTE | 2021-01-07 11:49 | PC.NURSE ---
1040 a call placed to [facility] as he requested and message left with them with his c/o feeling very weak and unsure if he can wait for transfusion on saturday and lab results. awaiting call back.
[2021-01-07 12:34] LABS: Mean Platelet Volume 9.7 fl (8.7-11.0)
[2021-01-07 12:36] LABS: Platelet Count Result 7 K/mm3 (150-420)
--- NOTE | 2021-01-07 12:49 | PC.NURSE ---
1140 platelets are finished. wants to rest a little bit before leaving. still cc/o of not feeling well. feels sob with excretion. just wore out. claims has called the BMT asset protection greeter also. still no return call from there. cont to suggest if he can not wait til saturday for his transfusion, he will need to go to an er for furthor care.
--- NOTE | 2021-01-07 12:53 | PC.NURSE ---
1230 patient claims he is ready to leave. dozes off and on in recliner. cont to suggest to visit er if not feeling that he can make it saturday. cont to state i don't want to go to er. i am going home after br use. iv removed. VS [id number]% ra. 1245. patient done in br. offered to call for ride. pt now claims, i want to go to er. patient taken per wc to admissions and report given to er nurse with new platelet # 7.
== END 2021-04-06 23:59 | disposition home or self-care (01) ==
LOC: CHSTREATRM 09:18
PROVIDERS: PCP Internal Medicine
DX: D47.1 Chronic myeloproliferative disease (principal)
CPT/HCPCS: 36415; 36430; 85025; 85027; 85049; 85055; 86900; 86901; J7050; P9034

== ENCOUNTER 2021-01-07 12:44 | Emergency (ER) | payer BC, SELFPAY ==
[2021-01-07 13:00] VITALS: BP 111/75; PULSE 100; RESP 20; TEMP 35.9; O2SAT 99
--- NOTE | 2021-01-07 13:29 | ED.GENADULT ---
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 He required blood products 5 days ago and platelets a couple times this week. He got a unit of platlets today as his count was one but it only came up to 7 and he could not be given blood in the clinic so he came here. He reports feeling tired and run down as well as SOB with activity. He feels just like this when he needs blood. He has no CP, N/V, bleeding, melena or hematemesis as well as fevers or chills. Related Data Home Medications Medication Instructions Recorded Confirmed Mirvaso 1 applic TOPICAL DAILY 04/10/20 01/06/21 entecavir 0.5 mg PO DAILY 09/16/20 01/06/21 morphine 15 mg PO BID PRN 09/16/20 01/06/21 pantoprazole 40 mg PO DAILY 09/16/20 01/06/21 folic acid [Folvite] 1 mg PO DAILY 10/21/20 01/06/21 mycophenolate mofetil 500 mg PO BID 10/21/20 01/06/21 valacyclovir [Valtrex] 500 mg PO Q12H 10/21/20 01/06/21 Allergies Allergy/AdvReac Type Severity Reaction Status Date / Time No Known Allergies Allergy Verified 01/07/21 13:17 Review of Systems Constitutional: Constitutional: Reports no additional constitutional complaints Eyes: Eyes: Reports no additional eye complaints ENT: Reports system reviewed and no additional complaints, except as documented Cardiovascular: Cardiovascular: Reports no additional cardiovascular complaints Respiratory: Respiratory: Reports as per HPI Gastrointestinal: Gastrointestinal: Reports no additional gastrointestinal complaints Genitourinary: Genitourinary: Reports no additional male genitourinary complaints Musculoskeletal: Musculoskeletal: Reports no additional musculoskeletal complaints Integumentary/Breasts: Comments: petechiae on upper extremities Neurologic: Reports system reviewed and no additional complaints, except as documented Psychiatric: Psychiatric: Reports no additional psychiatric complaints Endocrine: Endocrine: Reports no additional endocrine complaints Hematologic/Lymphatic: Hematologic/Lymphatic: Reports as per HPI Allergic/Immunologic: Allergic/Immunologic: Reports no additional allergic/immunologic complaints PMFSH Past Medical History Medical History History of ITP HTN (hypertension) Rosacea Surgical History Surgical History No pertinent past surgical history Family History Family History Mother Lung cancer Father Lung cancer Social History Social History Social History: The patient is and lives with his . He states that she is the durable power collections attorney as well as the 2 children that they have. The patient now needs to be a full code. 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 He is a lifelong nonsmoker. He does not use any alcohol. He said the last time he drank anything was wine about 3 months ago. No marijuana or illicit drugs. Smoking status: Never smoker Alcohol intake: former Substance use: never Substance use type: does not use Gender identity (if verbalized by the patient): Male Spiritual care concerns: No Exam Const: General: no acute distress and alert; No confusion Orientation/consciousness: patient oriented x3 Limitations: No altered mental status HENMT: Head: normal to inspection Other: normocephalic, atraumatic Eyes: Conjunctivae: conjunctivae normal Pupils: Equal, round and reactive pupils present Neck: Neck: normal visual inspection Chest: Chest palpation & inspection: normal insp
[2021-01-07 14:26] VITALS: BP 126/83; PULSE 101; RESP 18; TEMP 36.9; O2SAT 97
[2021-01-07 15:19] VITALS: BP 101/70; PULSE 106; RESP 20; O2SAT 99
== END 2021-01-07 15:15 | disposition short-term general hospital (02) ==
PROVIDERS: Emergency Provider Family Medicine; PCP Internal Medicine
DX: D64.9 Anemia, unspecified (principal); D69.6 Thrombocytopenia, unspecified
CPT/HCPCS: 36415; 86920; 99282; 99283; 99285

== ENCOUNTER 2021-01-09 08:29 | Outpatient (RCR) | payer BC, SELFPAY | END 2021-04-09 23:59 | disposition home or self-care (01) | LOC: ANHCPCTRAN 08:29 | PROVIDERS: PCP Internal Medicine | DX: D47.1 Chronic myeloproliferative disease (principal) | CPT/HCPCS: 36415 ==